=== PATIENT | male | born 1935 | race Caucasian/White ===

== ENCOUNTER 2017-06-24 13:14 | Outpatient (CLI) | payer MEDICARE ==
--- NOTE | 2017-06-24 14:04 | RAD ---
FOUR VIEWS OF THE LUMBOSACRAL SPINE: COMPARISON: None. HISTORY: Lumbar radiculopathy. FINDINGS: AP, lateral, and flexion and extension views of the lumbosacral spine were performed. The vertebral bodies demonstrate normal height and alignment without fracture or subluxation. Alignment is unchang ed with flexion and extension. Moderate osteophytes are seen throughout the lumbar spine. Moderate posterior facet arthrosis is seen in the lumbar spine. IMPRESSION: Moderate degenerative changes of the lumbar spine with unchanged alignment with bending. POS: JENNIFER
--- NOTE | 2017-06-24 15:07 | MRI ---
MRI OF THE LUMBAR SPINE: DATE: 06/24/17. COMPARISON: 06/11/16. HISTORY: Continued low back pain worsening and radiating down bilateral lower extremities. Lumbar radiculopat hy. TECHNIQUE: Multiplanar, multisequence MR imaging of the lumbar spine provided without contrast. FINDINGS: The sagittal STIR imaging demonstrates mild edematous end plate change on the right at L4-5 and L5-S1 . Mild degenerative-type edematous changes are noted involving the left pedicle of L4 vertebral body and right pedicle of L5 vertebral body. These findings are similar when compared to the prior exam. On the basis of 5 lumbar-type vertebral bodies, conus medullaris terminates at L1. No anterolisthesis or retrolisthesis noted within the lumbar spine. T12-L1: Mild bilateral facet hypertrophy. Intervertebral disk height and signal intensity within no rmal limits with no significant central canal or neural foraminal stenosis. L1-2: Mild bilateral facet hypertrophy. There is disk space narrowing, disk desiccation, and mild d isk bulge with small posterior osteophyte, stable. No central canal or neural foraminal stenosis. L2-3: Disk space narrowing, disk desiccation, and mild disk bulge, stable. Mild bilateral facet hyp ertrophy and hypertrophy of ligamentum flavum noted. Mild left neural foraminal stenosis. No signif icant central canal or right neural foraminal stenosis. L3-4: There is disk space narrowing, disk desiccation, and disk-osteophyte complex. There is promin ent bilateral facet hypertrophy and hypertrophy of the ligamentum flavum. There is severe central ca nal stenosis, similar when compared to the prior exam. There is moderate right and severe left neura l foraminal stenosis, grossly unchanged as well. L4-5: Disk space narrowing, disk desiccation, disk bulge, and central annular tear noted, stable. B ilateral facet hypertrophy and hypertrophy of ligamentum flavum noted. There is mild to moderate sta ble central canal stenosis. There is severe bilateral neural foraminal stenosis, right greater than left, not significantly changed. L5-S1: There is disk space narrowing, disk desiccation, and mild disk bugle. There is bilateral fac et hypertrophy. There is anterior and right lateral osteophyte formation, stable as well. There is no significant central canal stenosis. There is mild bilateral neural foraminal stenosis, right grea ter than left. Imaged retroperitoneal structures appear grossly unremarkable. IMPRESSION: Stable degenerative change within the lumbar spine, most significant at the L3-4 and L4-5 levels. POS: JENNIFER
== END 2017-06-24 13:15 | disposition home or self-care (01) ==
LOC: MRI 13:14
PROVIDERS: ATTEND Surgery
DX: M47.26 Other spondylosis with radiculopathy, lumbar region (principal)
CPT/HCPCS: 72120; 72148

== ENCOUNTER 2017-07-07 10:50 | Outpatient (CLI) | payer MEDICARE ==
[2017-07-07 11:40] LABS: Hemoglobin 14.1 g/dL (14.0-18.0); Mean Corpuscular HGB CONC 32.1 g/dL (32.0-36.0); Mean Corpuscular Hemoglobin 31.7 pg (27.0-31.0); Mean Corpuscular Volume 98.8 fl (80.0-94.0); Mean Platelet Volume 7.5 fL (7.4-10.4); Platelet Count 146 thou/uL (130-400); RBC Distribution Width 11.5 % (11.5-14.5); Red Blood Cell (RBC) Count 4.43 mill/uL (4.70-6.10); White Blood Cell (WBC) Count 5.8 thou/uL (4.8-10.8)
[2017-07-07 11:46] LABS: INR-International Normal Ratio 1.1; PTT 31.3 SEC (22.9-36.1); Prothrombin Time 14.2 SEC (12.0-14.7)
[2017-07-07 12:02] LABS: Anion Gap 9 mmol/L (10-20); BUN (Urea Nitrogen) 28 mg/dL (8.4-25.7); Calc. Creatinine Clearance 0 mL/min (70-130); Calcium 9.3 mg/dL (7.8-10.44); Carbon Dioxide 26 mmol/L (23-31); Chloride 106 mmol/L (98-107); Estimated GFR-MDRD 52; Glucose 87 mg/dL (83-110); Potassium 4.3 mmol/L (3.5-5.1); Sodium 137 mmol/L (136-145)
== END 2017-07-07 10:51 | disposition home or self-care (01) ==
LOC: LABBT 10:50
PROVIDERS: ATTEND Surgery
DX: Z01.818 Encounter for other preprocedural examination (principal); M48.061 Spinal stenosis, lumbar region without neurogenic claudication; M54.16 Radiculopathy, lumbar region
CPT/HCPCS: 80048; 85027; 85610; 85730; 93005; 93010

== ENCOUNTER 2017-07-16 08:55 | Day surgery (SDC) | payer MEDICARE ==
[2017-07-16] MEDS ORDERED: Clindamycin/D5W 900 mg/50 ml Premix Bag ONE (10:24)
[2017-07-16] MEDS ORDERED: Levofloxacin 500 mg/D5W 100 ml Premix Bag ONE (10:24)
[2017-07-16] MEDS ORDERED: Thrombin 5000 UNITS/5 ML VIAL ONE (12:07)
[2017-07-16] MEDS ORDERED: Sodium Chloride 0.9% 10 ML ONE (12:07)
[2017-07-16] MEDS ORDERED: Bacitracin Zinc Ointment 30 gm TUBE ONE (12:07)
[2017-07-16] MEDS ORDERED: HYDROmorphone 0.5 MG/0.5 ML SYRINGE ONE (13:05)
[2017-07-16] MEDS ORDERED: Meperidine HCl/PF 25 MG/ML VIAL SLOW IVP PRN (15:29)
[2017-07-16] MEDS ORDERED: Promethazine HCl 25 MG/ML VIAL IM PRN ×2 (15:29→16:05)
[2017-07-16] MEDS ORDERED: Promethazine HCl 25 MG/ML VIAL SLOW IVP PRN (15:29)
[2017-07-16] MEDS ORDERED: Ondansetron HCl/PF 4 MG/2 ML Vial IVP PRN ×2 (15:29→16:05)
--- NOTE | 2017-07-16 16:04 | OP ---
LOCATION: OR-12. WOUND TYPE: Type 1 wound. SURGEON: Armando Fraga M.D. HAND BASEBALL SEWER: Travis Chavez PA-C PREPROCEDURE DIAGNOSES: L3-L4, L4-L5 stenosis, low back and leg pain. POSTPROCEDURE DIAGNOSES: L3-L4, L4-L5 stenosis, low back and leg pain. PROCEDURE: L3-L4 and L4-L5 laminectomies, partial facetectomies and foraminotomies over the L3, L4, and L5 nerve roots. DESCRIPTION OF PROCEDURE: After informed consent was obtained from the patient, the patient was brou ght to OR 12. Proper patient pause and identification was carried out. He was placed under excellen t general endotracheal anesthesia and positioned prone on the operating room table. All appropriate points were padded. We identified the L3, L4, L5 dorsal spines lamina. Linear nohemi was made over th is region. This area was sterilely cleansed, prepared, and draped. Proper patient pause and identif ication was carried out. The wound was then opened with a combination of sharp, monopolar and blunt dissection. We then performed L3, L4, L5 laminectomies, partial facetectomies and foraminotomies. H e is very pleased with the decompression, there was no CSF leak. Copious irrigation occurred. Hemos tasis was the maximized throughout the case. The wound was closed in anatomic layers following the s prinkling of vancomycin powder. The patient then emerged from anesthesia.
[2017-07-16] MEDS ORDERED: Acetaminophen 325 MG TAB PO PRN (16:05)
[2017-07-16] MEDS ORDERED: traMADol HCl 50 MG TAB PO PRN (16:05)
[2017-07-16] MEDS ORDERED: tiZANidine HCl 4 MG TAB PO PRN (16:05)
[2017-07-16] MEDS ORDERED: Fleet Enema 133 ML BOT PR PRN (16:05)
[2017-07-16] MEDS ORDERED: Bisacodyl 10 MG SUPP PR PRN (16:05)
[2017-07-16] MEDS ORDERED: Milk Of Magnesia 30 ML UDCUP PO PRN (16:05)
[2017-07-16] MEDS ORDERED: Mag-Al 1200 mg/1200 mg/30 ML UDCUP PO PRN (16:05)
[2017-07-16] MEDS ORDERED: Acetaminophen/Codeine 30-300mg Tablet PO PRN (16:05)
[2017-07-16] MEDS ORDERED: Furosemide 40 MG TAB PO PRN (16:10)
[2017-07-16] MEDS ORDERED: Sodium Chloride 0.9% 1,000 ML IV SCH (16:15)
[2017-07-16] MEDS ORDERED: ePHEDrine/0.9% NaCl/PF SYRINGE 50 mg/10 ml ONE (17:14)
[2017-07-16] MEDS ORDERED: Glycopyrrolate 0.2 MG/ML 5 ML SYRINGE ONE (17:14)
[2017-07-16] MEDS ORDERED: Propofol 200 MG/20 ML VIAL ONE (17:14)
[2017-07-16] MEDS ORDERED: Ondansetron HCl/PF 4 MG/2 ML Vial ONE (17:14)
[2017-07-16] MEDS ORDERED: Lidocaine 1% PF 5 ML VIAL ONE (17:14)
[2017-07-16] MEDS ORDERED: PHENYLEPHRINE-NS 100 MCG/ML 10 ML SYRINGE ONE (17:14)
[2017-07-16] MEDS ORDERED: Atorvastatin Calcium 40 MG TAB PO SCH (21:00)
[2017-07-16] MEDS ORDERED: Dorzolamide HCl 2% Ophth Soln 10 ml Bottle R EYE SCH (21:00)
[2017-07-16] MEDS ORDERED: TROSPIUM 20 MG TABLET PO SCH (21:00)
[2017-07-16] MEDS: metFORMIN 500 MG TAB PO SCH (21:13)
[2017-07-16] MEDS: Gabapentin 300 MG CAP PO SCH (21:13)
[2017-07-16] MEDS: hydrALAZINE 25 MG TAB PO SCH (21:13)
[2017-07-16] MEDS: Clindamycin/D5W 900 MG in Premix Bag 1 BAG IVPB SCH (21:14)
[2017-07-16 21:29] VITALS: BMI 31.9
[2017-07-16] MEDS: HYDROcodone/Acetaminophen 7.5/325 mg Tablet PO PRN (21:31)
[2017-07-17] MEDS: HYDROcodone/Acetaminophen 7.5/325 mg Tablet PO PRN (04:18)
[2017-07-17] MEDS: Clindamycin/D5W 900 MG in Premix Bag 1 BAG IVPB SCH (05:52)
[2017-07-17] MEDS ORDERED: Levothyroxine Sodium 100 MCG TAB PO SCH (06:00)
[2017-07-17] MEDS: Gabapentin 300 MG CAP PO SCH (08:24)
[2017-07-17 08:25] VITALS: BP 167/72; TEMP 98.2
[2017-07-17] MEDS: metFORMIN 500 MG TAB PO SCH (08:25)
[2017-07-17] MEDS: hydrALAZINE 25 MG TAB PO SCH (08:26)
[2017-07-17] MEDS ORDERED: Lisinopril 20 MG TAB PO SCH (09:00)
[2017-07-17] MEDS ORDERED: Mirtazapine 30 MG TAB PO SCH (09:00)
[2017-07-17] MEDS ORDERED: Multivitamin W/ Minerals 1 TAB PO SCH (09:00)
[2017-07-17] MEDS ORDERED: Non-Formulary Item 1 EACH (Atorvastatin Calcium [Atorvastatin Calcium] 80 MG) PO SCH (09:00)
[2017-07-17] MEDS ORDERED: Tamsulosin HCl 0.4 MG CAP PO SCH (09:00)
--- NOTE | 2017-07-17 12:18 | PRG ---
DATE OF SERVICE: 07/17/2017 SUBJECTIVE: Mr. Sky is doing well postoperative day #1 from lumbar laminectomy. He has had just a scant amount of right lower extremity pain, but he states overall his pain is significantly improve d compared to before surgery. On exam, he has excellent strength in his lower extremities. He has a negative Homans sign. I do no t suspect that this is a DVT. It is likely just leftover radiculitis. He is doing very well; jessika delvalle, we will plan for dismissal. We went over intraoperative and postoperative issues.
== END 2017-07-17 10:14 | disposition home or self-care (01) ==
LOC: SDC 08:55 → ONC 16:05 → SDC 07-17 10:14
PROVIDERS: ATTEND Surgery
PROC: 00NY0ZZ Release Lumbar Spinal Cord, Open Approach (ICD-10-PCS; principal; 2017-07-16)
DX: M48.061 Spinal stenosis, lumbar region without neurogenic claudication (principal); Z88.0 Allergy status to penicillin
CPT/HCPCS: 76001; A4216; J1170; J1956; J2001; J2405; J2704; J3370; J3490

== ENCOUNTER 2018-10-19 07:23 | Outpatient (CLI) | payer MEDICARE ==
[2018-10-19] MEDS ORDERED: Gadobenate Dimeglumine 529 MG/1 ML (20ML VIAL) ONE (09:09)
--- NOTE | 2018-10-19 09:17 | MRI ---
MRI Lumbar Spine Noncontrast: HISTORY: Pain COMPARISON: 06/24/2017 FINDINGS: Conus medullaris is normal in morphology and terminates at the L1 level. Multilevel bilateral mild to moderate degenerative facet hypertrophy is present L1-2:Small left paracentral disc protrusion is present without high-grade central canal or neural for aminal stenosis L2-3:Broad-based disc osteophyte. Central zone annular fissure. Hffn-[id number] central canal stenos is with crowding of the bilateral traversing L2 nerve roots within each subarticular zone. Mild bilateral neural foraminal narrowing L3-4:Broad-based disc osteophyte with focal right paracentral component producing moderate right suba rticular stenosis with impingement of the traversing right L4 nerve root. There is mild central canal stenosis. Moderate to severe left and mild right neural foraminal stenosis present L4-5: Right paracentral disc protrusion is superimposed upon disc osteophyte complex with mild narro wing of the central canal. There is a synovial cyst adjacent the medial aspect of the right facet, 1.3 x 0.5 cm, with resultant medial displacement of adjacent nerve roots of the cauda equina. Moderat e narrowing of right subarticular zone with impingement of the traversing right L5 nerve root. Mild to moderate central canal stenosis is present and there is moderate to severe right and mild left gilbert ral foraminal narrowing L5-S1:Right asymmetric disc osteophyte formation results in mild to moderate right foraminal stenosis . No high-grade left neural foraminal, or central canal compromise IMPRESSION: Multilevel degenerative change at the lumbar spine, as outlined above. Transcribed Date/Time: 10/19/2018 9:42 AM
--- NOTE | 2018-10-19 09:25 | RAD ---
XR Lumbar Spine Min 4 View: 10/19/2018 12:00 AM CLINICAL INDICATION: Postlaminectomy syndrome, back pain COMPARISON: 06/24/2017 FINDINGS: Fracture:No new compression fracture Arthropathy:Multilevel moderate degenerative change of the lumbar spine is present. There is prominen t dextrocurvature of the upper lumbar spine, apex at L2. Alignment: Neutral lateral view reveals a slight degree of retrolisthesis at L1-2, and L3-4. No signi ficant abnormal translational motion identified with flexion/extension positioning. Incidental findings:Atherosclerosis and surgical clips are seen IMPRESSION: 1. Multilevel degenerative change of the lumbar spine, with mild retrolisthesis at L1-2, and L3-4. No significant abnormal translational motion.
== END 2018-10-19 07:24 | disposition home or self-care (01) ==
LOC: BICMRI 07:23
PROVIDERS: ATTEND Anesthesiology Pain Medicine
DX: M47.26 Other spondylosis with radiculopathy, lumbar region (principal); M96.1 Postlaminectomy syndrome, not elsewhere classified; M43.16 Spondylolisthesis, lumbar region
CPT/HCPCS: 72110; 72158; A9577

== ENCOUNTER 2019-03-02 12:28 | Outpatient (CLI) | payer MEDICARE ==
--- NOTE | 2019-03-02 13:14 | RAD ---
XR CERVICAL SPINE 4 VIEWS MINIMUM: DATE; 03/02/2019. TIME: 12:00 AM. CLINICAL INDICATION: Numbness in feet. COMPARISON: None. FINDINGS: Fracture:No fracture. Arthropathy:Moderate to severe multilevel degenerative change at the cervical spine. There is accentu ation of cervical lordosis. Flexion/extension positioning reveals no significant abnormal translational motion. Incidental findings:None of significance. IMPRESSION: Moderate to severe multilevel degenerative change at the cervical spine, without abnormal translation al motion. Transcribed Date/Time: 03/02/2019 2:02 PM
--- NOTE | 2019-03-02 13:14 | RAD ---
XR Lumbar Spine Min 4 View: 03/02/2019 12:00 AM CLINICAL INDICATION: Low back pain and radiculopathy COMPARISON: 10/19/2018 FINDINGS: Fracture:No fracture. No significant subluxation. Arthropathy:Moderate multilevel change spine is redemonstrated, with multilevel endplate degeneration , marginal osteophytosis, disc space narrowing and facet osteoarthritis. There is accentuation of lumbar lordosis. Flexion/extension positioning reveals no significant translational motion. Incidental findings:Atherosclerosis. IMPRESSION: Moderate multilevel degenerative change throughout the lumbar spine.
--- NOTE | 2019-03-02 14:46 | MRI ---
MRI CERVICAL SPINE WITHOUT CONTRAST: HISTORY: Bilateral foot numbness. COMPARISON: None. FINDINGS: Heterogeneous T1 marrow signal intensity of the cervical vertebrae. Cervical spine vertebral body hei ght is maintained. There is no fracture. No significant STIR hyperintensity to suggest vertebral body edema or ligamentous injury. Spondylolisthesis: 2.1 mm of retrolisthesis of C2 to upon C3. 4.2 mm of retrolisthesis of C3 upon C4. 2.3 mm of anterolisthesis of C7 upon T1. There is intrinsic T2 hyperintensity and STIR hyperintensity at the C5-C6 disc space. Fluid is suspec arabella. Endplates are preserved. Visualized brain parenchyma, cervicomedullary junction, cervical cord and the upper thoracic cord hav e a normal size and signal intensity. C2-C3: Broad-based disk-osteophyte by complex, nearly effacing the ventral subarachnoid space. Mild c entral canal stenosis. Bilaterally, neural foramina pain. C3-C4: Broad-based discussed by complex deforms the thecal sac and obscures the subarachnoid space. T here is mass effect and deformity the cervical cord with moderate to severe central canal stenosis. No cord hyperintensity. Moderate bilateral neural foraminal narrowing C4-C5: Broad-based disk-osteophyte complex effaces the subarachnoid space. There is mass effect and deformity the cervical cord. Moderate to severe central canal stenosis. Moderate bilateral neural foraminal narrowing. C5-C6: Abnormal fluid signal intensity in the disc. There is a central/left paracentral disc protrusi on. Mass effect and deformity of the midline and left aspect of the cord. There is moderate central canal stenosis, along the left aspect of the central spinal canal. Mild right and moderate left neura l foraminal narrowing. C6-C7: Broad-based osteophyte ridge effaces the subarachnoid space and causes deformity the cervical cord. Moderate central canal stenosis. Moderate to severe bilateral neural foraminal narrowing. C7-T1: No evidence of significant central canal stenosis or significant neural foraminal narrowing. T 2 hyperintensity in the left and right neural foramina due to bilateral perineural sleeve cysts. IMPRESSION: Extensive degenerative changes of the cervical spine as detailed above. 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 Transcribed Date/Time: 03/02/2019 3:12 PM
--- NOTE | 2019-03-02 15:02 | MRI ---
Exam: Thoracic spine MRI without contrast HISTORY: Bilateral foot numbness. Comparison: None FINDINGS: There is appropriate T1 marrow signal intensity of the thoracic vertebra with mild heteroge neity suggesting senescent change. There is no evidence of acute thoracic spine fracture. There is mild loss of vertebral body height at T1 without edema to suggest an acute process. No significant re tropulsion Visualized mediastinal structures are unremarkable. Small bilateral effusions cannot be excluded. Vis ualized lung parenchyma is unremarkable Visualized solid organs of appropriate signal intensity. The thoracic cord has a overall normal size and signal intensity. No cord expansion. No cord malacia. Conus medullaris terminates at the T12-L1 level. Throughout the thoracic spine, neural foramina are patent T2-T3: Severe central canal stenosis secondary to disc osteophyte complex. T3-T4: Desiccation with mild loss of disc space height. Broad-based disc bulge with mild central bita l stenosis T4-T5: Desiccation with mild loss of disc space height. Broad-based disc bulge effaces subarachnoid s pace. There is mild central canal stenosis T6-T7: Small right paracentral disc protrusion. Mild canal stenosis. T8-T9: Small central/left paracentral disc protrusion. No significant central canal stenosis. Neural foramina are patent T10-T11: Broad-based disc osteophyte complex. There is moderate to severe central canal stenosis. IMPRESSION: 1. Degenerative changes of the thoracic spine as above. 2. There is severe central canal stenosis at T2-T3 and moderate to severe central canal stenosis at T 10-T11.
== END 2019-03-02 12:29 | disposition home or self-care (01) ==
LOC: BICMRI 12:28
PROVIDERS: ATTEND Physician Assistant Surgical
DX: M47.26 Other spondylosis with radiculopathy, lumbar region (principal); M48.062 Spinal stenosis, lumbar region with neurogenic claudication; R20.8 Other disturbances of skin sensation; R20.2 Paresthesia of skin; M47.812 Spondylosis without myelopathy or radiculopathy, cervical region; M47.814 Spondylosis without myelopathy or radiculopathy, thoracic region; M48.04 Spinal stenosis, thoracic region; M43.12 Spondylolisthesis, cervical region
CPT/HCPCS: 72050; 72110; 72141; 72146

== ENCOUNTER 2019-10-10 06:18 | Outpatient (CLI) | payer MEDICARE, OTHER ==
[2019-10-10 10:46] LABS: Hemoglobin 11.9 g/dL (14.0-18.0); Mean Platelet Volume 8.1 fL (7.4-10.4); Platelet Count 142 thou/uL (130-400); RBC Distribution Width 11.7 % (11.5-14.5); Red Blood Cell (RBC) Count 3.62 mill/uL (4.70-6.10); White Blood Cell (WBC) Count 8.1 thou/uL (4.8-10.8)
[2019-10-10 10:51] LABS: PTT 31.1 SEC (22.9-36.1); Prothrombin Time 12.7 sec (12.0-14.7)
[2019-10-10 11:09] LABS: Anion Gap 14 mmol/L (10-20); BUN (Urea Nitrogen) 41 mg/dL (8.4-25.7); Calc. Creatinine Clearance 0 mL/min (70-130); Calcium 9.2 mg/dL (7.8-10.44); Carbon Dioxide 21 mmol/L (23-31); Chloride 107 mmol/L (98-107); Estimated GFR-MDRD 27; Glucose 101 mg/dL (83-110); Potassium 4.6 mmol/L (3.5-5.1); Sodium 137 mmol/L (136-145)
[2019-10-10 17:36] LABS: SARS-CoV-2 MS2 Positive; SARS-CoV-2 N Gene Negative; SARS-CoV-2 S Gene Negative; SARS-CoV-2 orf1ab Negative
--- NOTE | 2019-10-10 21:11 | EKG ---
Test Reason : Blood Pressure : / mmHG Vent. Rate : 055 BPM Atrial Rate : 340 BPM P-R Int : 000 ms QRS Dur : 094 ms QT Int : 510 ms P-R-T Axes : 000 027 001 degrees QTc Int : 487 ms Junctional rhythm Nonspecific T wave abnormality Prolonged QT Abnormal ECG When compared with ECG of 07-JUL-2017 11:26, Junctional rhythm has replaced Sinus rhythm Criteria for Septal infarct are no longer Present Nonspecific T wave abnormality now evident in Lateral leads Confirmed by Angeline LITTLEJOHN ([id number]) on 10/10/2019 9:11:04 PM Referred By: ERNESTINE Confirmed By:Angeline LITTLEJOHN
== END 2019-10-10 06:19 | disposition home or self-care (01) ==
LOC: LABBT 06:18
PROVIDERS: ATTEND Surgery
DX: Z01.818 Encounter for other preprocedural examination (principal); Z11.59 Encounter for screening for other viral diseases; M48.061 Spinal stenosis, lumbar region without neurogenic claudication; M54.16 Radiculopathy, lumbar region
CPT/HCPCS: 80048; 85027; 85610; 85730; 93005; U0003; 87635; 93010

== ENCOUNTER 2019-10-13 07:30 | Day surgery (SDC) | payer MEDICARE ==
[2019-10-10 08:45] VITALS: BMI 30.4
[2019-10-13] MEDS ORDERED: Clindamycin/D5W 900 mg/50 ml Premix Bag ONE (10:06)
[2019-10-13] MEDS ORDERED: Levofloxacin 500 mg/D5W 100 ml Premix Bag ONE (10:06)
[2019-10-13] MEDS ORDERED: Thrombin 5000 UNITS/5 ML VIAL ONE (10:36)
[2019-10-13] MEDS ORDERED: Fentanyl 100 MCG/2 ML VIAL ONE ×2 (10:38→14:29)
[2019-10-13] MEDS ORDERED: Lidocaine 2% Jelly 5 ML TUBE ONE (10:38)
[2019-10-13] MEDS ORDERED: Phenylephrine 10 MG/ML VIAL ONE (11:46)
[2019-10-13] MEDS ORDERED: Albumin 5% 500 ML ONE (11:55)
[2019-10-13] MEDS ORDERED: Dexamethasone 20 MG/5 ML VIAL ONE (13:33)
[2019-10-13] MEDS ORDERED: PHENYLEPHRINE-NS 100 MCG/ML 10 ML SYRINGE ONE (13:33)
[2019-10-13] MEDS ORDERED: Rocuronium Bromide 10 MG/ML (10ML VIAL) ONE (13:33)
[2019-10-13] MEDS ORDERED: Ondansetron PF 4 MG/2 ML Vial ONE (13:33)
[2019-10-13] MEDS ORDERED: EPHEDRINE 25 MG/5 ML SYRINGE ONE (13:33)
[2019-10-13] MEDS ORDERED: Glycopyrrolate 0.2 MG/ML 5 ML SYRINGE ONE (13:33)
[2019-10-13] MEDS ORDERED: Lidocaine 1% PF 5 ML VIAL ONE (13:33)
[2019-10-13] MEDS ORDERED: PROPOFOL 200 MG/20 ML VIAL ONE (13:33)
[2019-10-13] MEDS ORDERED: Bisacodyl 10 MG SUPP PR PRN (13:52)
[2019-10-13] MEDS ORDERED: Acetaminophen/Codeine 30-300mg Tablet PO PRN (13:52)
[2019-10-13] MEDS ORDERED: traMADol HCl 50 MG TAB PO PRN (13:52)
[2019-10-13] MEDS ORDERED: Mag-Al 1200 mg/1200 mg/30 ML UDCUP PO PRN (13:52)
[2019-10-13] MEDS ORDERED: Morphine 2 MG/ML SYRINGE SLOW IVP PRN (13:52)
[2019-10-13] MEDS ORDERED: Ondansetron PF 4 MG/2 ML Vial IVP PRN (13:52)
[2019-10-13] MEDS ORDERED: Acetaminophen 325 MG TAB PO PRN (13:52)
[2019-10-13] MEDS ORDERED: tiZANidine HCl 4 MG TAB PO PRN (13:52)
[2019-10-13] MEDS ORDERED: Milk Of Magnesia 30 ML UDCUP PO PRN (13:52)
[2019-10-13] MEDS ORDERED: Fleet Enema 133 ML BOT PR PRN (13:52)
[2019-10-13] MEDS ORDERED: Promethazine HCl 25 MG/ML VIAL SLOW IVP PRN (14:00)
[2019-10-13] MEDS ORDERED: Promethazine HCl 25 MG/ML VIAL IM PRN (14:00)
[2019-10-13] MEDS ORDERED: Ondansetron HCl/PF 4 MG/2 ML Vial IVP PRN (14:00)
[2019-10-13] MEDS: Gabapentin 300 MG CAP PO SCH ×2 (16:36→20:10)
[2019-10-13] MEDS: hydrALAZINE 25 MG TAB PO SCH ×2 (17:21→20:11)
[2019-10-13] MEDS: Clindamycin/D5W 900 MG in Premix Bag 1 BAG IVPB SCH (18:18)
[2019-10-13] MEDS: Sodium Chloride 0.9% 1,000 ML IV SCH ×2 (20:07→21:17)
[2019-10-13] MEDS: Tamsulosin HCl 0.4 MG CAP PO SCH (20:10)
[2019-10-13] MEDS: Dorzolamide HCl 2% Ophth Soln 10 ml Bottle R EYE SCH (20:11)
[2019-10-13] MEDS ORDERED: Mirtazapine 30 MG TAB PO SCH (21:00)
[2019-10-13] MEDS ORDERED: Finasteride 5 MG TAB PO SCH (21:00)
[2019-10-13] MEDS ORDERED: Oxybutynin ER 5 MG TAB PO SCH (21:00)
[2019-10-13] MEDS: HYDROcodone/Acetaminophen 7.5/325 mg Tablet PO PRN (21:15)
[2019-10-14] MEDS: Clindamycin/D5W 900 MG in Premix Bag 1 BAG IVPB SCH (01:09)
[2019-10-14] MEDS ORDERED: Levothyroxine Sodium 100 MCG TAB PO SCH (06:00)
[2019-10-14] MEDS: HYDROcodone/Acetaminophen 7.5/325 mg Tablet PO PRN (06:06)
--- NOTE | 2019-10-14 06:58 | OP ---
DATE OF PROCEDURE: 10/13/2019 LOCATION: OR 12. CHIEF GAUGER: Clary Mcclellan PA-C. PREPROCEDURE DIAGNOSES: 1. Right L3-L4 revision hemilaminotomy, foraminotomy, and diskectomy for decompression of the traversing right L4 nerve root. 2. Right L4-L5 synovial cyst resection for decompression of the traversing right L5 nerve root. 3. Use of operative microscope for microdissection. DESCRIPTION OF PROCEDURE: After informed consent was obtained from the patient, the patient was brought to the OR. Proper patient, pause, and identification were carried out. He was placed under excellent general endotracheal anesthesia and positioned prone on the OR table. All appropriate points were padded. We identified the L3, L4, and L5 segments. This area was sterilely cleansed, prepared, and draped. Proper patient, pause, and identification was carried out. The old wound was used and we then proceeded to open the wound and expose the right L3-L4 and right L4-L5 segments, which were scarred as expected from the prior surgery. Localization film confirmed our area of interest. We then performed a right L3-L4 revision hemilaminotomy, foraminotomy, and diskectomy, with use of operative microscope for microdissection, and a right L4-L5 synovial cyst resection for decompression of traversing right L5 nerve root. We had excellent decompression of common dural tube and nerve roots. Copious irrigation occurred throughout. The wound was then closed in anatomic layers following sprinkling of vancomycin powder. The patient then emerged from anesthesia. Job ID: [id number]
[2019-10-14] MEDS: Dorzolamide HCl 2% Ophth Soln 10 ml Bottle R EYE SCH (08:30)
[2019-10-14] MEDS: Gabapentin 300 MG CAP PO SCH (08:31)
[2019-10-14] MEDS: Tamsulosin HCl 0.4 MG CAP PO SCH (08:32)
[2019-10-14] MEDS: hydrALAZINE 25 MG TAB PO SCH (08:33)
[2019-10-14] MEDS ORDERED: Calcitriol 0.25 MCG CAP PO SCH (09:00)
[2019-10-14] MEDS ORDERED: Atorvastatin Calcium 40 MG TAB PO SCH (09:00)
[2019-10-14 10:44] VITALS: BP 148/56; TEMP 98.1
--- NOTE | 2019-10-14 11:42 | PRG ---
DATE OF SERVICE: 10/14/2019 Mr. Sky is doing well postoperative day 1 from lumbar decompression. He is neurologically intact and mobilizing. We will plan for dismissal once he walks in the franks. Job ID: [id number]
== END 2019-10-14 12:24 | disposition home or self-care (01) ==
LOC: SDC 07:30 → SURG A 13:57 → SDC 10-14 12:24
PROVIDERS: ATTEND Surgery
PROC: 0QB00ZX Excision of Lumbar Vertebra, Open Approach, Diagnostic (ICD-10-PCS; principal; 2019-10-13)
PROC: 0SB20ZZ Excision of Lumbar Vertebral Disc, Open Approach (ICD-10-PCS; 2019-10-13)
PROC: 01NB0ZZ Release Lumbar Nerve, Open Approach (ICD-10-PCS; 2019-10-13)
DX: M51.16 Intervertebral disc disorders with radiculopathy, lumbar region (principal); M71.38 Other bursal cyst, other site; M48.061 Spinal stenosis, lumbar region without neurogenic claudication; Z79.82 Long term (current) use of aspirin; Z79.899 Other long term (current) drug therapy; Z88.0 Allergy status to penicillin; Z95.1 Presence of aortocoronary bypass graft
CPT/HCPCS: 63042; 63267; 76000; P9045; J1956; J2370; J3010; J3370; J3490

== ENCOUNTER 2021-07-16 13:25 | Outpatient (CLI) | payer MEDICARE ==
[2021-07-16 14:35] LABS: Hemoglobin 12.7 g/dL (13.5-17.5); Mean Corpuscular HGB CONC 31.9 g/dL (32.0-36.0); Mean Corpuscular Hemoglobin 32.6 pg (27.0-33.0); Mean Corpuscular Volume 102.1 fl (81.2-95.1); Mean Platelet Volume 9.6 fl (7.4-10.4); Platelet Count 125 10x3/uL (150-450); RBC Distribution Width 12.9 % (11.5-14.5); White Blood Cell (WBC) Count 5.9 10x3/uL (3.5-10.5)
[2021-07-16 14:48] LABS: PTT 28.9 sec (22.0-33.0); Prothrombin Time 10.9 sec (9.5-12.1)
[2021-07-16 15:00] LABS: Anion Gap 15 mmol/L (10-20); BUN (Urea Nitrogen) 62 mg/dL (8.4-25.7); Calc. Creatinine Clearance 0 mL/min (70-130); Calcium 9.2 mg/dL (7.8-10.44); Carbon Dioxide 19 mmol/L (23-31); Chloride 108 mmol/L (98-107); Glucose 98 mg/dL (83-110); Potassium 4.1 mmol/L (3.5-5.1); Sodium 138 mmol/L (136-145)
[2021-07-16 15:21] LABS: Bilirubin Neg (Negative); Blood, Urine Negative (Negative); Clarity Clear (Clear); Glucose, Urine (Dipstick) Normal (Negative); Ketone, Urine Negative (Negative); Leukocyte 25 (Negative); Nitrite Negative (Negative); Protein, Urine (Dipstick) 30 mg/dl (Neg-Trace); Urobilinogen Normal mg/dL (Less than 2)
[2021-07-16 15:37] LABS: Bacteria/HPF None Seen HPF (None Seen); RBC/HPF 0-3 HPF (0-3); Squamous Epithelial 0-3 HPF (0-3); WBC/HPF 0-3 HPF (0-3)
[2021-07-16 23:46] LABS: SARS-CoV-2 PCR by NAA Not Detected (NotDetected)
== END 2021-07-16 13:26 | disposition home or self-care (01) ==
LOC: LABBT 13:25
PROVIDERS: ATTEND Urology
DX: Z01.818 Encounter for other preprocedural examination (principal); C67.9 Malignant neoplasm of bladder, unspecified; N40.1 Benign prostatic hyperplasia with lower urinary tract symptoms; N39.41 Urge incontinence; E11.42 Type 2 diabetes mellitus with diabetic polyneuropathy; N18.30 Chronic kidney disease, stage 3 unspecified; E11.22 Type 2 diabetes mellitus with diabetic chronic kidney disease; Z20.822 Contact with and (suspected) exposure to COVID-19
CPT/HCPCS: 80048; 81001; 85027; 85610; 85730; 87086; 93005; U0003; U0005; 93010

== ENCOUNTER 2021-07-19 08:32 | Day surgery (SDC) | payer MEDICARE ==
[2021-07-16 12:24] VITALS: BMI 28.8
[2021-07-19] MEDS ORDERED: PROPOFOL 20 ML ONE (11:26)
[2021-07-19] MEDS ORDERED: Fentanyl 250 MCG/5 ML VIAL ONE (11:26)
[2021-07-19] MEDS ORDERED: Levofloxacin 500 mg/D5W 100 ml Premix Bag ONE (11:29)
[2021-07-19] MEDS ORDERED: ePHEDrine 50 MG/ML VIAL ONE (11:33)
[2021-07-19] MEDS ORDERED: Ondansetron PF 4 MG/2 ML Vial ONE (11:33)
== END 2021-07-19 13:11 | disposition home or self-care (01) ==
LOC: SDC 08:32
PROVIDERS: ATTEND Urology
PROC: 0T7D8DZ Dilation of Urethra with Intraluminal Device, Via Natural or Artificial Opening Endoscopic (ICD-10-PCS; principal; 2021-07-19)
DX: N40.1 Benign prostatic hyperplasia with lower urinary tract symptoms (principal); N13.8 Other obstructive and reflux uropathy; N32.89 Other specified disorders of bladder; E03.9 Hypothyroidism, unspecified; I12.9 Hypertensive chronic kidney disease with stage 1 through stage 4 chronic kidney disease, or unspecified chronic kidney disease; E11.22 Type 2 diabetes mellitus with diabetic chronic kidney disease; N18.9 Chronic kidney disease, unspecified; E78.5 Hyperlipidemia, unspecified; K21.9 Gastro-esophageal reflux disease without esophagitis; I25.10 Atherosclerotic heart disease of native coronary artery without angina pectoris; Z85.51 Personal history of malignant neoplasm of bladder; Z79.82 Long term (current) use of aspirin; Z79.899 Other long term (current) drug therapy; Z88.0 Allergy status to penicillin; Z95.1 Presence of aortocoronary bypass graft
CPT/HCPCS: C9739; L8699; J1956; J2405; J2704; J3010; J3490

== ENCOUNTER 2021-10-06 15:11 | Inpatient (IN) | payer MEDICARE ==
[2021-10-06] MEDS: Sodium Chloride 0.9% 1,000 ML IV SCH ×2 (20:51→22:12)
[2021-10-06] MEDS ORDERED: Ondansetron PF 4 MG/2 ML Vial IVP PRN (21:15)
[2021-10-06] MEDS ORDERED: Sodium Chloride 0.9% 1,000 ML IV SCH (21:17)
[2021-10-06 22:00] LABS: Hemoglobin 9.9 g/dL (14.0-18.0)
[2021-10-06] MEDS: Sodium Bicarbonate Tab 325 MG TAB PO SCH (22:10)
[2021-10-06 22:21] LABS: SARS-CoV-2 PCR by NAA Not Detected (NotDetected)
[2021-10-06] MEDS ORDERED: Mirtazapine 30 MG TAB PO SCH (23:59)
[2021-10-07] MEDS: Sodium Chloride 0.9% 1,000 ML IV SCH ×2 (06:31→15:49)
[2021-10-07] MEDS: Acetaminophen 325 MG TAB PO PRN ×3 (06:35→20:55)
[2021-10-07 06:36] LABS: #Eosinphils 0.2 thou/uL (0.0-0.7); #Lymphocytes 1.2 thou/uL (1.20-3.40); #Monocytes 0.5 thou/uL (0.11-0.59); #Neutrophils 4.4 thou/uL (1.40-6.50); %Basophils 0.3 % (0.0-1.0); %Eosinophils 3.3 % (0.0-10.0); %Lymphocytes 19.2 % (21.0-51.0); %Monocytes 8.3 % (0.0-10.0); %Neutrophils 68.9 % (42.0-75.0); Hemoglobin 9.3 g/dL (14.0-18.0); Mean Corpuscular Hemoglobin 35.9 pg (27.0-31.0); Mean Platelet Volume 7.2 fL (7.4-10.4); Platelet Count 125 thou/uL (130-400); RBC Distribution Width 11.2 % (11.5-14.5); Red Blood Cell (RBC) Count 2.57 mill/uL (4.70-6.10); White Blood Cell (WBC) Count 6.4 thou/uL (4.8-10.8)
[2021-10-07 06:49] LABS: Anion Gap 15 mmol/L (10-20); BUN (Urea Nitrogen) 79 mg/dL (8.4-25.7); Calc. Creatinine Clearance 14 mL/min (70-130); Calcium 8.7 mg/dL (7.8-10.44); Carbon Dioxide 17 mmol/L (23-31); Chloride 111 mmol/L (98-107); Glucose 84 mg/dL (83-110); Iron 142 ug/dL (65-175); Iron Binding Capacity, Total 210 mcg/dL (261-462); Potassium 3.1 mmol/L (3.5-5.1); Sodium 140 mmol/L (136-145)
[2021-10-07] MEDS: Sodium Bicarbonate Tab 325 MG TAB PO SCH ×2 (08:32→20:55)
[2021-10-07] MEDS ORDERED: Heparin 5,000 UNITS/ML VIAL SC SCH (09:00)
[2021-10-07 11:41] LABS: Anion Gap 14 mmol/L (10-20); BUN (Urea Nitrogen) 76 mg/dL (8.4-25.7); Calc. Creatinine Clearance 14 mL/min (70-130); Calcium 8.6 mg/dL (7.8-10.44); Carbon Dioxide 19 mmol/L (23-31); Chloride 110 mmol/L (98-107); Glucose 117 mg/dL (83-110); Potassium 3.6 mmol/L (3.5-5.1); Sodium 139 mmol/L (136-145)
[2021-10-07] MEDS: Calcitriol 0.25 MCG CAP PO SCH (20:55)
[2021-10-07] MEDS: hydrALAZINE 25 MG TAB PO SCH (20:56)
[2021-10-07] MEDS: Mirtazapine 15 MG Soltab PO SCH (20:57)
[2021-10-08] MEDS: Sodium Chloride 0.9% 1,000 ML IV SCH ×3 (01:58→19:54)
[2021-10-08 06:13] LABS: #Eosinphils 0.2 thou/uL (0.0-0.7); #Lymphocytes 1.9 thou/uL (1.20-3.40); #Monocytes 0.5 thou/uL (0.11-0.59); #Neutrophils 3.6 thou/uL (1.40-6.50); %Basophils 0.3 % (0.0-1.0); %Eosinophils 3.5 % (0.0-10.0); %Lymphocytes 30.5 % (21.0-51.0); %Monocytes 8.1 % (0.0-10.0); %Neutrophils 57.6 % (42.0-75.0); Hemoglobin 9.3 g/dL (14.0-18.0); Mean Corpuscular HGB CONC 34.1 g/dL (32.0-36.0); Mean Platelet Volume 7.1 fL (7.4-10.4); Platelet Count 128 thou/uL (130-400); RBC Distribution Width 11.9 % (11.5-14.5); Red Blood Cell (RBC) Count 2.58 mill/uL (4.70-6.10); White Blood Cell (WBC) Count 6.2 thou/uL (4.8-10.8)
[2021-10-08 06:40] LABS: Anion Gap 16 mmol/L (10-20); BUN (Urea Nitrogen) 69 mg/dL (8.4-25.7); Calc. Creatinine Clearance 15 mL/min (70-130); Calcium 8.6 mg/dL (7.8-10.44); Carbon Dioxide 15 mmol/L (23-31); Chloride 114 mmol/L (98-107); Glucose 87 mg/dL (83-110); Potassium 3.4 mmol/L (3.5-5.1); Sodium 142 mmol/L (136-145)
[2021-10-08] MEDS: Gabapentin 300 MG CAP PO SCH (08:08)
[2021-10-08] MEDS: Folic Acid 1 MG TAB PO SCH (08:09)
[2021-10-08] MEDS: hydrALAZINE 25 MG TAB PO SCH ×3 (08:09→19:55)
[2021-10-08] MEDS: Aspirin 81 mg Enteric Coated Tablet PO SCH (08:09)
[2021-10-08] MEDS: Sodium Bicarbonate Tab 325 MG TAB PO SCH ×2 (08:10→19:54)
[2021-10-08] MEDS: Levothyroxine Sodium 100 MCG TAB PO SCH (08:10)
[2021-10-08] MEDS: Atorvastatin Calcium 40 MG TAB PO SCH (08:10)
[2021-10-08] MEDS: Calcitriol 0.25 MCG CAP PO SCH ×2 (08:10→19:54)
[2021-10-08] MEDS: Acetaminophen 325 MG TAB PO PRN (19:54)
[2021-10-08] MEDS: Mirtazapine 15 MG Soltab PO SCH (19:55)
[2021-10-09 05:10] LABS: #Eosinphils 0.2 thou/uL (0.0-0.7); #Lymphocytes 1.2 thou/uL (1.20-3.40); #Monocytes 0.4 thou/uL (0.11-0.59); #Neutrophils 3.5 thou/uL (1.40-6.50); %Basophils 0.7 % (0.0-1.0); %Eosinophils 4.4 % (0.0-10.0); %Lymphocytes 21.5 % (21.0-51.0); %Monocytes 8.1 % (0.0-10.0); %Neutrophils 65.4 % (42.0-75.0); Hemoglobin 8.2 g/dL (14.0-18.0); Mean Corpuscular Hemoglobin 34.6 pg (27.0-31.0); Mean Platelet Volume 7.2 fL (7.4-10.4); Platelet Count 123 thou/uL (130-400); RBC Distribution Width 11.3 % (11.5-14.5); Red Blood Cell (RBC) Count 2.37 mill/uL (4.70-6.10); White Blood Cell (WBC) Count 5.4 thou/uL (4.8-10.8)
[2021-10-09 05:21] LABS: Anion Gap 13 mmol/L (10-20); BUN (Urea Nitrogen) 60 mg/dL (8.4-25.7); Calc. Creatinine Clearance 17 mL/min (70-130); Calcium 8.2 mg/dL (7.8-10.44); Carbon Dioxide 17 mmol/L (23-31); Chloride 118 mmol/L (98-107); Glucose 86 mg/dL (83-110); Potassium 3.2 mmol/L (3.5-5.1); Sodium 145 mmol/L (136-145)
[2021-10-09] MEDS: Sodium Chloride 0.9% 1,000 ML IV SCH ×2 (05:21→14:39)
[2021-10-09] MEDS: Acetaminophen 325 MG TAB PO PRN (06:43)
[2021-10-09] MEDS: Atorvastatin Calcium 40 MG TAB PO SCH (08:20)
[2021-10-09] MEDS: Levothyroxine Sodium 100 MCG TAB PO SCH (08:22)
[2021-10-09] MEDS: hydrALAZINE 25 MG TAB PO SCH ×3 (08:22→20:56)
[2021-10-09] MEDS: Sodium Bicarbonate Tab 325 MG TAB PO SCH ×2 (08:22→20:57)
[2021-10-09] MEDS: Folic Acid 1 MG TAB PO SCH (08:22)
[2021-10-09] MEDS: Gabapentin 300 MG CAP PO SCH (08:23)
[2021-10-09] MEDS: Aspirin 81 mg Enteric Coated Tablet PO SCH (08:23)
[2021-10-09] MEDS: Calcitriol 0.25 MCG CAP PO SCH ×2 (08:24→20:57)
[2021-10-09] MEDS: HYDROcodone/Acetaminophen 10/325 mg Tablet PO PRN (16:42)
[2021-10-09] MEDS: Mirtazapine 15 MG Soltab PO SCH (20:57)
[2021-10-10] MEDS: Sodium Chloride 0.9% 1,000 ML IV SCH (01:32)
[2021-10-10 05:00] LABS: #Eosinphils 0.3 thou/uL (0.0-0.7); #Lymphocytes 1.1 thou/uL (1.20-3.40); #Monocytes 0.5 thou/uL (0.11-0.59); #Neutrophils 4.1 thou/uL (1.40-6.50); %Basophils 0.6 % (0.0-1.0); %Eosinophils 4.4 % (0.0-10.0); %Lymphocytes 18.7 % (21.0-51.0); %Monocytes 8.2 % (0.0-10.0); Hemoglobin 9.1 g/dL (14.0-18.0); Mean Corpuscular HGB CONC 33.8 g/dL (32.0-36.0); Mean Corpuscular Hemoglobin 35.5 pg (27.0-31.0); Mean Platelet Volume 6.9 fL (7.4-10.4); Platelet Count 115 thou/uL (130-400); RBC Distribution Width 11.4 % (11.5-14.5); Red Blood Cell (RBC) Count 2.55 mill/uL (4.70-6.10)
[2021-10-10 05:26] LABS: Anion Gap 13 mmol/L (10-20); BUN (Urea Nitrogen) 50 mg/dL (8.4-25.7); Calc. Creatinine Clearance 19 mL/min (70-130); Calcium 8.1 mg/dL (7.8-10.44); Carbon Dioxide 16 mmol/L (23-31); Chloride 117 mmol/L (98-107); Glucose 89 mg/dL (83-110); Potassium 3.1 mmol/L (3.5-5.1); Sodium 143 mmol/L (136-145)
[2021-10-10 06:42] VITALS: BMI 27.7
[2021-10-10] MEDS: Aspirin 81 mg Enteric Coated Tablet PO SCH (08:28)
[2021-10-10] MEDS: Gabapentin 300 MG CAP PO SCH (08:28)
[2021-10-10] MEDS: Calcitriol 0.25 MCG CAP PO SCH (08:28)
[2021-10-10] MEDS: Atorvastatin Calcium 40 MG TAB PO SCH (08:28)
[2021-10-10] MEDS: Sodium Bicarbonate Tab 325 MG TAB PO SCH (08:30)
[2021-10-10] MEDS: hydrALAZINE 25 MG TAB PO SCH (08:30)
[2021-10-10] MEDS: Levothyroxine Sodium 100 MCG TAB PO SCH (08:31)
[2021-10-10] MEDS: HYDROcodone/Acetaminophen 10/325 mg Tablet PO PRN (08:39)
[2021-10-10] MEDS: Folic Acid 1 MG TAB PO SCH (08:39)
[2021-10-10 11:48] VITALS: BP 147/67; TEMP 97.1
== END 2021-10-10 13:52 | disposition home or self-care (01) | DRG 683 ==
LOC: NEURO 17:24
PROVIDERS: ADMIT Family Medicine; ATTEND Emergency Medicine
DX: N17.9 Acute kidney failure, unspecified (principal); Z20.822 Contact with and (suspected) exposure to COVID-19; I50.32 Chronic diastolic (congestive) heart failure; E87.2 Acidosis; I13.2 Hypertensive heart and chronic kidney disease with heart failure and with stage 5 chronic kidney disease, or end stage renal disease; N18.5 Chronic kidney disease, stage 5; E78.5 Hyperlipidemia, unspecified; I25.10 Atherosclerotic heart disease of native coronary artery without angina pectoris; E03.9 Hypothyroidism, unspecified; D63.1 Anemia in chronic kidney disease; G89.29 Other chronic pain; M54.9 Dorsalgia, unspecified; Z60.2 Problems related to living alone; D69.6 Thrombocytopenia, unspecified; E87.6 Hypokalemia; E53.8 Deficiency of other specified B group vitamins; Z85.51 Personal history of malignant neoplasm of bladder; Z88.0 Allergy status to penicillin; Z79.899 Other long term (current) drug therapy; Z79.82 Long term (current) use of aspirin; Z79.890 Hormone replacement therapy; Z95.1 Presence of aortocoronary bypass graft; Z95.0 Presence of cardiac pacemaker; Z90.49 Acquired absence of other specified parts of digestive tract; Z98.890 Other specified postprocedural states; Z80.9 Family history of malignant neoplasm, unspecified; Z87.891 Personal history of nicotine dependence
CPT/HCPCS: 36415; 76770; 80048; 82607; 82746; 83540; 83550; 85025; J7050; U0003; U0005

== ENCOUNTER 2021-10-26 14:21 | Inpatient (IN) | payer MEDICARE ==
[2021-10-26 15:10] LABS: #Eosinphils 0.3 thou/uL (0.0-0.7); #Lymphocytes 1.4 thou/uL (1.20-3.40); #Monocytes 0.6 thou/uL (0.11-0.59); #Neutrophils 6.6 thou/uL (1.40-6.50); %Basophils 0.4 % (0.0-1.0); %Eosinophils 2.8 % (0.0-10.0); %Monocytes 7.2 % (0.0-10.0); %Neutrophils 73.5 % (42.0-75.0); Hemoglobin 8.8 g/dL (14.0-18.0); Mean Corpuscular HGB CONC 34.4 g/dL (32.0-36.0); Mean Corpuscular Hemoglobin 35.7 pg (27.0-31.0); Mean Platelet Volume 6.2 fL (7.4-10.4); Platelet Count 178 thou/uL (130-400); RBC Distribution Width 12.4 % (11.5-14.5); Red Blood Cell (RBC) Count 2.46 mill/uL (4.70-6.10)
[2021-10-26 15:14] LABS: Bilirubin Negative (Negative); Blood, Urine Negative (Negative); Clarity Clear (Clear); Glucose, Urine (Dipstick) 50 mg/dL (Negative); Ketone, Urine Negative (Negative); Leukocyte Negative Leu/uL (Negative); Nitrite Negative (Negative); Protein, Urine (Dipstick) 20 mg/dL (Neg-Trace); Specific Gravity, Urine 1.011 (1.002-1.036); Urobilinogen Normal mg/dL (Less than 2)
[2021-10-26 15:31] LABS: ALT (SGPT) 9 U/L (8-55); AST (SGOT) 12 U/L (5-34); Albumin 3.4 g/dL (3.4-4.8); Alkaline Phosphatase 66 U/L (40-110); Anion Gap 17 mmol/L (10-20); BUN (Urea Nitrogen) 62 mg/dL (8.4-25.7); Bilirubin, Total 0.4 mg/dL (0.2-1.2); Calc. Creatinine Clearance 0 mL/min (70-130); Calcium 8.6 mg/dL (7.8-10.44); Carbon Dioxide 18 mmol/L (23-31); Chloride 102 mmol/L (98-107); Globulin 2.7 g/dL (2.4-3.5); Glucose 129 mg/dL (83-110); Magnesium 1.8 mg/dL (1.6-2.6); Potassium 3.6 mmol/L (3.5-5.1); Protein, Total 6.1 g/dL (5.8-8.1); Sodium 133 mmol/L (136-145)
[2021-10-26] MEDS ORDERED: Ondansetron ODT 4 MG TAB PO PRN (17:35)
[2021-10-26] MEDS ORDERED: Ondansetron PF 4 MG/2 ML Vial IVP PRN (17:35)
[2021-10-26 18:46] LABS: Troponin I 0.023 ng/mL (< 0.028)
[2021-10-26] MEDS: Sodium Chloride 0.9% 1,000 ML IV SCH (21:42)
[2021-10-26] MEDS: Atorvastatin Calcium 40 MG TAB PO SCH (21:43)
[2021-10-26] MEDS: Calcitriol 0.25 MCG CAP PO SCH (21:43)
[2021-10-26] MEDS: hydrALAZINE 25 MG TAB PO SCH (21:43)
[2021-10-26] MEDS: Acetaminophen 325 MG TAB PO PRN (21:43)
[2021-10-27 03:25] LABS: SARS-CoV-2 NAA Rapid Test Not Detected (NotDetected)
[2021-10-27] MEDS: Levothyroxine Sodium 100 MCG TAB PO SCH (05:15)
[2021-10-27 06:50] LABS: Anion Gap 15 mmol/L (10-20); BUN (Urea Nitrogen) 61 mg/dL (8.4-25.7); Calc. Creatinine Clearance 10 mL/min (70-130); Calcium 8.8 mg/dL (7.8-10.44); Carbon Dioxide 18 mmol/L (23-31); Chloride 108 mmol/L (98-107); Glucose 90 mg/dL (83-110); Potassium 3.6 mmol/L (3.5-5.1); Sodium 137 mmol/L (136-145)
[2021-10-27 07:49] LABS: #Eosinphils 0.2 thou/uL (0.0-0.7); #Monocytes 0.6 thou/uL (0.11-0.59); #Neutrophils 4.5 thou/uL (1.40-6.50); %Basophils 0.2 % (0.0-1.0); %Eosinophils 3.3 % (0.0-10.0); %Lymphocytes 16.3 % (21.0-51.0); %Monocytes 8.7 % (0.0-10.0); %Neutrophils 71.4 % (42.0-75.0); Hemoglobin 8.6 g/dL (14.0-18.0); MDiff Complete? YES; Macrocytosis SLIGHT = 6-15 cells (100X) (0-5/hpf); Mean Corpuscular HGB CONC 32.8 g/dL (32.0-36.0); Mean Corpuscular Hemoglobin 35.5 pg (27.0-31.0); Mean Platelet Volume 6.8 fL (7.4-10.4); Platelet Count 148 thou/uL (130-400); Platelet Morphology Comment Appears Adequate; RBC Distribution Width 12.3 % (11.5-14.5); Red Blood Cell (RBC) Count 2.42 mill/uL (4.70-6.10); White Blood Cell (WBC) Count 6.3 thou/uL (4.8-10.8)
[2021-10-27] MEDS: hydrALAZINE 25 MG TAB PO SCH ×3 (09:06→21:56)
[2021-10-27] MEDS: Folic Acid 1 MG TAB PO SCH (09:06)
[2021-10-27] MEDS: Aspirin 81 mg Enteric Coated Tablet PO SCH (09:06)
[2021-10-27] MEDS: Calcitriol 0.25 MCG CAP PO SCH ×2 (09:06→21:56)
[2021-10-27] MEDS: Acetaminophen 325 MG TAB PO PRN ×2 (09:09→15:15)
[2021-10-27] MEDS: Sodium Chloride 0.9% 1,000 ML IV SCH (13:55)
[2021-10-27] MEDS: Atorvastatin Calcium 40 MG TAB PO SCH (21:56)
[2021-10-28] MEDS: Levothyroxine Sodium 100 MCG TAB PO SCH (06:17)
[2021-10-28 07:21] LABS: Hemoglobin 8.5 g/dL (14.0-18.0); Mean Corpuscular HGB CONC 32.5 g/dL (32.0-36.0); Mean Corpuscular Hemoglobin 35.5 pg (27.0-31.0); Mean Platelet Volume 7.2 fL (7.4-10.4); Platelet Count 137 thou/uL (130-400); RBC Distribution Width 12.4 % (11.5-14.5); Red Blood Cell (RBC) Count 2.41 mill/uL (4.70-6.10); White Blood Cell (WBC) Count 7.1 thou/uL (4.8-10.8)
[2021-10-28 07:41] LABS: Anion Gap 16 mmol/L (10-20); BUN (Urea Nitrogen) 56 mg/dL (8.4-25.7); Calc. Creatinine Clearance 11 mL/min (70-130); Calcium 8.7 mg/dL (7.8-10.44); Carbon Dioxide 15 mmol/L (23-31); Chloride 111 mmol/L (98-107); Glucose 89 mg/dL (83-110); Potassium 3.9 mmol/L (3.5-5.1); Sodium 138 mmol/L (136-145)
[2021-10-28 08:19] LABS: Band 2 % (5-11); Eosinophils 5 % (0-10); Lymphocytes 18 % (21-51); MDiff Complete? YES; Macrocytosis SLIGHT = 6-15 cells (100X) (0-5/hpf); Monocytes 13 % (0-10); Neutrophil 61 % (42-75); Platelet Morphology Comment Appears Adequate; Polychromasia SLIGHT = 2-3 cells (100X) (0-2/hpf); Reactive Lymphocytes 1 % (0-10)
[2021-10-28] MEDS: Folic Acid 1 MG TAB PO SCH (08:40)
[2021-10-28] MEDS: Calcitriol 0.25 MCG CAP PO SCH ×2 (08:40→22:07)
[2021-10-28] MEDS: Aspirin 81 mg Enteric Coated Tablet PO SCH (08:40)
[2021-10-28] MEDS: Sodium Chloride 0.9% 1,000 ML IV SCH (08:41)
[2021-10-28] MEDS: hydrALAZINE 25 MG TAB PO SCH ×3 (11:18→22:29)
[2021-10-28] MEDS: Acetaminophen 325 MG TAB PO PRN ×2 (11:19→22:17)
[2021-10-28] MEDS ORDERED: Epoetin (ESRD) 10,000 UNITS/ML VIAL SC SCH ×2 (13:00→22:00)
[2021-10-28] MEDS: Atorvastatin Calcium 40 MG TAB PO SCH (22:07)
[2021-10-29] MEDS: Levothyroxine Sodium 100 MCG TAB PO SCH (06:50)
[2021-10-29 06:57] LABS: #Eosinphils 0.2 thou/uL (0.0-0.7); #Lymphocytes 1.4 thou/uL (1.20-3.40); #Monocytes 0.6 thou/uL (0.11-0.59); #Neutrophils 3.6 thou/uL (1.40-6.50); %Basophils 0.4 % (0.0-1.0); %Eosinophils 3.8 % (0.0-10.0); %Monocytes 9.7 % (0.0-10.0); %Neutrophils 62.1 % (42.0-75.0); Hemoglobin 8.3 g/dL (14.0-18.0); Mean Corpuscular HGB CONC 33.6 g/dL (32.0-36.0); Mean Corpuscular Hemoglobin 35.9 pg (27.0-31.0); Mean Platelet Volume 6.6 fL (7.4-10.4); Platelet Count 155 thou/uL (130-400); RBC Distribution Width 12.3 % (11.5-14.5); Red Blood Cell (RBC) Count 2.32 mill/uL (4.70-6.10); White Blood Cell (WBC) Count 5.8 thou/uL (4.8-10.8)
[2021-10-29 07:32] LABS: Anion Gap 16 mmol/L (10-20); BUN (Urea Nitrogen) 52 mg/dL (8.4-25.7); Calc. Creatinine Clearance 11 mL/min (70-130); Calcium 8.5 mg/dL (7.8-10.44); Carbon Dioxide 16 mmol/L (23-31); Chloride 111 mmol/L (98-107); Glucose 86 mg/dL (83-110); Potassium 3.5 mmol/L (3.5-5.1); Sodium 139 mmol/L (136-145)
[2021-10-29] MEDS: Calcitriol 0.25 MCG CAP PO SCH ×2 (09:18→21:52)
[2021-10-29] MEDS: Folic Acid 1 MG TAB PO SCH (09:18)
[2021-10-29] MEDS: Aspirin 81 mg Enteric Coated Tablet PO SCH (09:18)
[2021-10-29] MEDS: hydrALAZINE 25 MG TAB PO SCH ×3 (09:20→21:52)
[2021-10-29] MEDS: Acetaminophen 500 MG TAB PO PRN ×2 (12:08→21:53)
[2021-10-29] MEDS ORDERED: Tuberculin PPD 0.1 ML VIAL I-DERMAL SCH (16:30)
[2021-10-29] MEDS ORDERED: CEFAZOLIN 2 GM in Sodium Chloride 0.9% 100 ML IVPB SCH (17:45)
[2021-10-29] MEDS: Atorvastatin Calcium 40 MG TAB PO SCH (21:53)
[2021-10-30] MEDS: Levothyroxine Sodium 100 MCG TAB PO SCH (06:08)
[2021-10-30 07:27] LABS: HBSAB Concentration Less than 8.00 mIU/mL; HBSAg Index 0.24 S/CO (0-0.99); Hep B Core Total Ab Non-Reactive (NonReactive); Hep B Core Total Index 0.04 S/CO (0-0.79); Hep B Surf AB Non-Reactive (NonReactive); Hep B Surf Ag Non-Reactive S/CO (NonReactive); Hep C IgG Ab Non-Reactive (NonReactive); Hep C Index 0.07 S/CO (0-0.79)
[2021-10-30] MEDS: Aspirin 81 mg Enteric Coated Tablet PO SCH (08:31)
[2021-10-30] MEDS: Calcitriol 0.25 MCG CAP PO SCH ×2 (08:31→22:54)
[2021-10-30] MEDS: Folic Acid 1 MG TAB PO SCH (08:31)
[2021-10-30] MEDS: hydrALAZINE 25 MG TAB PO SCH ×3 (08:32→22:54)
[2021-10-30] MEDS: Acetaminophen 500 MG TAB PO PRN ×2 (08:36→20:15)
[2021-10-30] MEDS ORDERED: Heparin 10,000 UNITS/ 10 ML VIAL ONE ×2 (08:54→16:08)
[2021-10-30] MEDS: EPOETIN ALFA-EPBX (ESRD) 10,000 UNIT/ML VIAL IVP SCH (14:42)
[2021-10-30] MEDS ORDERED: Midazolam HCl 2 mg/2 ml Vial ONE (14:47)
[2021-10-30] MEDS ORDERED: fentaNYL Citrate/PF 100 MCG/2 ML SYRINGE ONE (15:55)
[2021-10-30] MEDS ORDERED: Bupivacaine PF 0.5% 30 ML VIAL ONE (16:08)
[2021-10-30] MEDS ORDERED: Lidocaine 1% w/Epinephrine 1:100K 20 ML VIAL ONE (16:08)
[2021-10-30] MEDS ORDERED: Heparin 5,000 UNITS/ML VIAL ONE (16:08)
[2021-10-30] MEDS ORDERED: Protamine Sulfate 50 MG/5 ML VIAL ONE (16:08)
[2021-10-30] MEDS ORDERED: Sodium Chloride 0.9% 100 ML ONE (16:27)
[2021-10-30] MEDS ORDERED: CEFAZOLIN 2 GM VIAL ONE (16:27)
[2021-10-30] MEDS ORDERED: Lidocaine 1% PF 5 ML VIAL ONE (16:33)
[2021-10-30] MEDS ORDERED: Ropivacaine 0.5% HCl/PF (150 MG/30 ML VIAL) ONE (16:33)
[2021-10-30] MEDS ORDERED: PROPOFOL 200 MG/20 ML VIAL ONE (16:33)
[2021-10-30] MEDS ORDERED: traMADol HCl 50 MG TAB PO PRN (18:04)
[2021-10-30] MEDS: Atorvastatin Calcium 40 MG TAB PO SCH (22:54)
[2021-10-31] MEDS: Acetaminophen 500 MG TAB PO PRN (01:48)
[2021-10-31 02:21] VITALS: BMI 25.8
[2021-10-31] MEDS: Levothyroxine Sodium 100 MCG TAB PO SCH (05:55)
[2021-10-31] MEDS ORDERED: READ PPD TEST SITE PO SCH (09:00)
[2021-10-31] MEDS: hydrALAZINE 25 MG TAB PO SCH ×3 (09:44→20:14)
[2021-10-31] MEDS ORDERED: HYDROmorphone 0.5 MG/0.5 ML SYRINGE SLOW IVP SCH (09:45)
[2021-10-31] MEDS: Aspirin 81 mg Enteric Coated Tablet PO SCH (09:49)
[2021-10-31] MEDS: Folic Acid 1 MG TAB PO SCH (09:49)
[2021-10-31] MEDS: Calcitriol 0.25 MCG CAP PO SCH ×2 (09:49→20:14)
[2021-10-31] MEDS: Atorvastatin Calcium 40 MG TAB PO SCH (20:14)
[2021-11-01] MEDS: Levothyroxine Sodium 100 MCG TAB PO SCH (06:36)
[2021-11-01 07:34] LABS: #Eosinphils 0.2 thou/uL (0.0-0.7); #Monocytes 0.7 thou/uL (0.11-0.59); #Neutrophils 4.4 thou/uL (1.40-6.50); %Basophils 0.6 % (0.0-1.0); %Eosinophils 3.4 % (0.0-10.0); %Lymphocytes 15.4 % (21.0-51.0); %Monocytes 11.1 % (0.0-10.0); %Neutrophils 69.4 % (42.0-75.0); Hemoglobin 7.7 g/dL (14.0-18.0); Mean Corpuscular HGB CONC 33.5 g/dL (32.0-36.0); Mean Corpuscular Hemoglobin 36.2 pg (27.0-31.0); Platelet Count 141 thou/uL (130-400); RBC Distribution Width 12.1 % (11.5-14.5); Red Blood Cell (RBC) Count 2.12 mill/uL (4.70-6.10); White Blood Cell (WBC) Count 6.3 thou/uL (4.8-10.8)
[2021-11-01 07:56] LABS: Anion Gap 14 mmol/L (10-20); BUN (Urea Nitrogen) 47 mg/dL (8.4-25.7); Calc. Creatinine Clearance 13 mL/min (70-130); Calcium 8.6 mg/dL (7.8-10.44); Carbon Dioxide 21 mmol/L (23-31); Chloride 104 mmol/L (98-107); Glucose 95 mg/dL (83-110); Potassium 3.2 mmol/L (3.5-5.1); Sodium 136 mmol/L (136-145)
[2021-11-01] MEDS ORDERED: Potassium Chloride 20 MEQ TAB PO SCH (08:30)
[2021-11-01] MEDS: Calcitriol 0.25 MCG CAP PO SCH (09:06)
[2021-11-01] MEDS: hydrALAZINE 25 MG TAB PO SCH ×2 (09:07→14:52)
[2021-11-01] MEDS ORDERED: Heparin 10,000 UNITS/ 10 ML VIAL ONE (09:27)
[2021-11-01] MEDS: Aspirin 81 mg Enteric Coated Tablet PO SCH (11:26)
[2021-11-01] MEDS: Folic Acid 1 MG TAB PO SCH (11:26)
[2021-11-01] MEDS: EPOETIN ALFA-EPBX (ESRD) 10,000 UNIT/ML VIAL IVP SCH (12:29)
[2021-11-01] MEDS: Acetaminophen 500 MG TAB PO PRN (13:25)
[2021-11-01 13:31] VITALS: BP 120/60; TEMP 98.2
== END 2021-11-01 16:13 | disposition home health service (06) | DRG 673 ==
LOC: ERS 14:21 → T4-A 16:57 → OBSVTOIN 10-27 16:48
PROVIDERS: ADMIT Internal Medicine; ATTEND Internal Medicine
PROC: 5A1D70Z Performance of Urinary Filtration, Intermittent, Less than 6 Hours Per Day (ICD-10-PCS; principal; 2021-10-30)
PROC: 3E0T3BZ Introduction of Anesthetic Agent into Peripheral Nerves and Plexi, Percutaneous Approach (ICD-10-PCS; 2021-10-30)
PROC: 031B0ZF Bypass Right Radial Artery to Lower Arm Vein, Open Approach (ICD-10-PCS; 2021-10-30)
PROC: B548ZZA Ultrasonography of Superior Vena Cava, Guidance (ICD-10-PCS; 2021-10-30)
PROC: 0JH60XZ Insertion of Tunneled Vascular Access Device into Chest Subcutaneous Tissue and Fascia, Open Approach (ICD-10-PCS; 2021-10-30)
PROC: 02HV33Z Insertion of Infusion Device into Superior Vena Cava, Percutaneous Approach (ICD-10-PCS; 2021-10-30)
PROC: B5181ZA Fluoroscopy of Superior Vena Cava using Low Osmolar Contrast, Guidance (ICD-10-PCS; 2021-10-30)
PROC: 02HV33Z Insertion of Infusion Device into Superior Vena Cava, Percutaneous Approach (ICD-10-PCS; 2021-10-30)
DX: N17.9 Acute kidney failure, unspecified (principal); I21.A1 Myocardial infarction type 2; I13.0 Hypertensive heart and chronic kidney disease with heart failure and stage 1 through stage 4 chronic kidney disease, or unspecified chronic kidney disease; I50.32 Chronic diastolic (congestive) heart failure; E87.2 Acidosis; E87.1 Hypo-osmolality and hyponatremia; N28.0 Ischemia and infarction of kidney; Z20.822 Contact with and (suspected) exposure to COVID-19; E86.0 Dehydration; E78.5 Hyperlipidemia, unspecified; E03.9 Hypothyroidism, unspecified; I25.10 Atherosclerotic heart disease of native coronary artery without angina pectoris; N40.0 Benign prostatic hyperplasia without lower urinary tract symptoms; R29.6 Repeated falls; F17.210 Nicotine dependence, cigarettes, uncomplicated; R73.9 Hyperglycemia, unspecified; D63.1 Anemia in chronic kidney disease; D69.6 Thrombocytopenia, unspecified; N27.1 Small kidney, bilateral; N18.6 End stage renal disease; E87.6 Hypokalemia; Z95.1 Presence of aortocoronary bypass graft; Z88.0 Allergy status to penicillin; Z79.899 Other long term (current) drug therapy; Z79.82 Long term (current) use of aspirin; Z79.890 Hormone replacement therapy; Z85.51 Personal history of malignant neoplasm of bladder; Z98.890 Other specified postprocedural states; Z95.0 Presence of cardiac pacemaker; Z90.49 Acquired absence of other specified parts of digestive tract; Z91.81 History of falling; Z99.2 Dependence on renal dialysis
CPT/HCPCS: 36415; 71045; 76770; 80048; 80053; 81003; 83735; 84484; 85025; 86580; 86704; 87340; 90935; 93005; 93306; 93970; 94760; 96360; C1751; C1752; C1776; G0257; J0690; J1170; J1644; J2250; J2704; J2720; J2795; J3490; J7050; Q4081; S0020; U0002

== ENCOUNTER 2021-12-13 11:28 | Inpatient (IN) | payer MEDICARE ==
[2021-12-13 12:24] LABS: #Basophils 0.1 thou/uL (0.0-0.2); #Eosinphils 0.1 thou/uL (0.0-0.7); #Lymphocytes 1.3 thou/uL (1.20-3.40); #Monocytes 0.5 thou/uL (0.11-0.59); #Neutrophils 5.2 thou/uL (1.40-6.50); %Basophils 0.9 % (0.0-1.0); %Lymphocytes 17.8 % (21.0-51.0); %Monocytes 6.7 % (0.0-10.0); %Neutrophils 73.6 % (42.0-75.0); Hemoglobin 11.8 g/dL (14.0-18.0); Mean Corpuscular HGB CONC 32.2 g/dL (32.0-36.0); Mean Corpuscular Hemoglobin 35.6 pg (27.0-31.0); Mean Platelet Volume 7.6 fL (7.4-10.4); Platelet Count 140 thou/uL (130-400); RBC Distribution Width 12.3 % (11.5-14.5); Red Blood Cell (RBC) Count 3.32 mill/uL (4.70-6.10); White Blood Cell (WBC) Count 7.1 thou/uL (4.8-10.8)
[2021-12-13 13:00] LABS: ALT (SGPT) 8 U/L (8-55); AST (SGOT) 17 U/L (5-34); Albumin 3.7 g/dL (3.4-4.8); Alkaline Phosphatase 56 U/L (40-110); Anion Gap 20 mmol/L (10-20); BUN (Urea Nitrogen) 39 mg/dL (8.4-25.7); CK (CPK) 94 U/L (30-200); Calc. Creatinine Clearance 0 mL/min (70-130); Calcium 10.1 mg/dL (7.8-10.44); Carbon Dioxide 20 mmol/L (23-31); Chloride 105 mmol/L (98-107); Estimated GFR 14; Globulin 2.5 g/dL (2.4-3.5); Glucose 91 mg/dL (83-110); Potassium 3.2 mmol/L (3.5-5.1); Protein, Total 6.2 g/dL (5.8-8.1); Sodium 142 mmol/L (136-145)
[2021-12-13 13:09] LABS: Bilirubin, Total 0.4 mg/dL (0.2-1.2)
[2021-12-13 13:11] LABS: CKMB 2.4 ng/mL (0-6.6)
[2021-12-13] MEDS ORDERED: Aspirin Chewable 81 MG TAB ONE (13:29)
[2021-12-13] MEDS ORDERED: Ondansetron PF 4 MG/2 ML Vial IVP PRN (14:57)
[2021-12-13] MEDS ORDERED: Acetaminophen 650 MG Suppository PR PRN (14:57)
[2021-12-13] MEDS ORDERED: Ondansetron ODT 4 MG TAB PO PRN (14:57)
[2021-12-13] MEDS ORDERED: Sodium Chloride 0.9% 1,000 ML IV SCH (15:00)
[2021-12-13 16:31] LABS: Troponin I 0.087 ng/mL (< 0.028)
[2021-12-13] MEDS ORDERED: Potassium Chloride 20 MEQ TAB PO SCH (18:15)
[2021-12-13 19:16] LABS: Troponin I 0.139 ng/mL (< 0.028)
[2021-12-13 22:11] VITALS: BMI 24.7
[2021-12-13] MEDS: Atorvastatin Calcium 40 MG TAB PO SCH (22:54)
[2021-12-13] MEDS: Acetaminophen 325 MG TAB PO PRN (22:58)
[2021-12-14] MEDS: Levothyroxine Sodium 100 MCG TAB PO SCH (05:46)
[2021-12-14 05:57] LABS: Anion Gap 20 mmol/L (10-20); BUN (Urea Nitrogen) 39 mg/dL (8.4-25.7); Calc. Creatinine Clearance 14 mL/min (70-130); Calcium 9.8 mg/dL (7.8-10.44); Carbon Dioxide 20 mmol/L (23-31); Chloride 106 mmol/L (98-107); Estimated GFR 13; Glucose 78 mg/dL (83-110); Phosphorus 4.9 mg/dL (2.3-4.7); Potassium 3.3 mmol/L (3.5-5.1); Sodium 143 mmol/L (136-145)
[2021-12-14 07:00] LABS: Band 1 % (5-11); Eosinophils 2 % (0-10); Hemoglobin 12.7 g/dL (14.0-18.0); Lymphocytes 14 % (21-51); MDiff Complete? YES; Macrocytosis MODERATE=16-30 cells (100X) (0-5/hpf); Mean Corpuscular HGB CONC 32.4 g/dL (32.0-36.0); Mean Corpuscular Hemoglobin 36.1 pg (27.0-31.0); Mean Platelet Volume 8.2 fL (7.4-10.4); Monocytes 7 % (0-10); Neutrophil 74 % (42-75); Ovalocytes SLIGHT = 2-5 cells (100X) (0-1/hpf); Platelet Count 93 thou/uL (130-400); Platelet Morphology Comment Appears Decreased; RBC Distribution Width 12.3 % (11.5-14.5); Red Blood Cell (RBC) Count 3.51 mill/uL (4.70-6.10); White Blood Cell (WBC) Count 5.9 thou/uL (4.8-10.8)
[2021-12-14] MEDS: Folic Acid 1 MG TAB PO SCH (09:00)
[2021-12-14 09:08] LABS: HBSAB Concentration Less than 8.00 mIU/mL; HBSAg Index 0.76 S/CO (0-0.99); Hep B Surf AB Non-Reactive (NonReactive); Hep B Surf Ag Non-Reactive S/CO (NonReactive)
[2021-12-14] MEDS ORDERED: Heparin 10,000 UNITS/ 10 ML VIAL ONE (09:26)
[2021-12-14] MEDS: Atorvastatin Calcium 40 MG TAB PO SCH (20:18)
[2021-12-15 05:19] LABS: #Eosinphils 0.2 thou/uL (0.0-0.7); #Lymphocytes 0.9 thou/uL (1.20-3.40); #Monocytes 0.6 thou/uL (0.11-0.59); #Neutrophils 5.4 thou/uL (1.40-6.50); %Basophils 0.4 % (0.0-1.0); %Eosinophils 2.2 % (0.0-10.0); %Neutrophils 76.5 % (42.0-75.0); Mean Corpuscular HGB CONC 31.7 g/dL (32.0-36.0); Mean Corpuscular Hemoglobin 35.6 pg (27.0-31.0); Mean Platelet Volume 7.7 fL (7.4-10.4); Platelet Count 135 thou/uL (130-400); RBC Distribution Width 12.1 % (11.5-14.5); Red Blood Cell (RBC) Count 3.66 mill/uL (4.70-6.10); White Blood Cell (WBC) Count 7.1 thou/uL (4.8-10.8)
[2021-12-15 05:42] LABS: Anion Gap 16 mmol/L (10-20); BUN (Urea Nitrogen) 22 mg/dL (8.4-25.7); Calc. Creatinine Clearance 21 mL/min (70-130); Calcium 9.4 mg/dL (7.8-10.44); Carbon Dioxide 25 mmol/L (23-31); Chloride 102 mmol/L (98-107); Estimated GFR 20; Glucose 80 mg/dL (83-110); Potassium 3.3 mmol/L (3.5-5.1); Sodium 140 mmol/L (136-145)
[2021-12-15] MEDS: Levothyroxine Sodium 100 MCG TAB PO SCH (06:03)
[2021-12-15] MEDS: Acetaminophen 325 MG TAB PO PRN (09:44)
[2021-12-15] MEDS: Folic Acid 1 MG TAB PO SCH (09:44)
[2021-12-15] MEDS ORDERED: Potassium Chloride 20 MEQ TAB PO SCH (11:45)
[2021-12-15] MEDS: HYDROcodone/Acetaminophen 5/325 mg Tablet PO PRN (18:22)
[2021-12-15] MEDS: Atorvastatin Calcium 40 MG TAB PO SCH (21:29)
[2021-12-16 05:28] LABS: #Eosinphils 0.2 thou/uL (0.0-0.7); #Lymphocytes 1.2 thou/uL (1.20-3.40); #Monocytes 0.6 thou/uL (0.11-0.59); #Neutrophils 4.8 thou/uL (1.40-6.50); %Basophils 0.7 % (0.0-1.0); %Eosinophils 2.7 % (0.0-10.0); %Lymphocytes 17.4 % (21.0-51.0); %Monocytes 8.8 % (0.0-10.0); %Neutrophils 70.4 % (42.0-75.0); Hemoglobin 13.9 g/dL (14.0-18.0); Mean Corpuscular HGB CONC 32.7 g/dL (32.0-36.0); Mean Corpuscular Hemoglobin 36.8 pg (27.0-31.0); Mean Platelet Volume 7.9 fL (7.4-10.4); Platelet Count 124 thou/uL (130-400); RBC Distribution Width 11.9 % (11.5-14.5); Red Blood Cell (RBC) Count 3.77 mill/uL (4.70-6.10); White Blood Cell (WBC) Count 6.8 thou/uL (4.8-10.8)
[2021-12-16 05:52] LABS: Anion Gap 16 mmol/L (10-20); BUN (Urea Nitrogen) 29 mg/dL (8.4-25.7); Calc. Creatinine Clearance 17 mL/min (70-130); Calcium 9.4 mg/dL (7.8-10.44); Carbon Dioxide 21 mmol/L (23-31); Chloride 105 mmol/L (98-107); Estimated GFR 16; Glucose 84 mg/dL (83-110); Potassium 3.5 mmol/L (3.5-5.1); Sodium 138 mmol/L (136-145)
[2021-12-16] MEDS: Levothyroxine Sodium 100 MCG TAB PO SCH (06:38)
[2021-12-16] MEDS: HYDROcodone/Acetaminophen 5/325 mg Tablet PO PRN (06:38)
[2021-12-16] MEDS: Folic Acid 1 MG TAB PO SCH (10:46)
[2021-12-16 11:16] LABS: Syphilis Antibody Nonreactive (Nonreactive); Syphilis Antibody Index 0.04 S/CO (<1.00 Non-Reactive)
[2021-12-16] MEDS: Atorvastatin Calcium 40 MG TAB PO SCH (21:35)
[2021-12-17 05:23] LABS: #Basophils 0.1 thou/uL (0.0-0.2); #Eosinphils 0.3 thou/uL (0.0-0.7); #Lymphocytes 1.2 thou/uL (1.20-3.40); #Monocytes 0.8 thou/uL (0.11-0.59); #Neutrophils 5.7 thou/uL (1.40-6.50); %Eosinophils 3.2 % (0.0-10.0); %Monocytes 9.4 % (0.0-10.0); %Neutrophils 71.4 % (42.0-75.0); Hemoglobin 13.4 g/dL (14.0-18.0); Mean Corpuscular HGB CONC 32.2 g/dL (32.0-36.0); Mean Platelet Volume 7.9 fL (7.4-10.4); Platelet Count 138 thou/uL (130-400); RBC Distribution Width 11.9 % (11.5-14.5); Red Blood Cell (RBC) Count 3.73 mill/uL (4.70-6.10)
[2021-12-17 05:44] LABS: Anion Gap 15 mmol/L (10-20); BUN (Urea Nitrogen) 34 mg/dL (8.4-25.7); Calc. Creatinine Clearance 15 mL/min (70-130); Calcium 9.3 mg/dL (7.8-10.44); Carbon Dioxide 22 mmol/L (23-31); Chloride 107 mmol/L (98-107); Estimated GFR 14; Glucose 84 mg/dL (83-110); Potassium 3.6 mmol/L (3.5-5.1); Sodium 140 mmol/L (136-145)
[2021-12-17] MEDS: Levothyroxine Sodium 100 MCG TAB PO SCH (08:30)
[2021-12-17] MEDS: Folic Acid 1 MG TAB PO SCH (08:30)
[2021-12-17] MEDS ORDERED: Heparin 10,000 UNITS/ 10 ML VIAL ONE (14:39)
[2021-12-17] MEDS: HYDROcodone/Acetaminophen 5/325 mg Tablet PO PRN (17:09)
[2021-12-17] MEDS: Atorvastatin Calcium 40 MG TAB PO SCH (20:19)
[2021-12-18] MEDS: HYDROcodone/Acetaminophen 5/325 mg Tablet PO PRN ×2 (00:55→18:24)
[2021-12-18 05:09] LABS: #Basophils 0.1 thou/uL (0.0-0.2); #Eosinphils 0.2 thou/uL (0.0-0.7); #Lymphocytes 1.3 thou/uL (1.20-3.40); #Monocytes 0.6 thou/uL (0.11-0.59); %Basophils 0.9 % (0.0-1.0); %Eosinophils 2.5 % (0.0-10.0); %Lymphocytes 18.6 % (21.0-51.0); %Monocytes 8.9 % (0.0-10.0); %Neutrophils 69.1 % (42.0-75.0); Hemoglobin 13.9 g/dL (14.0-18.0); Mean Corpuscular Hemoglobin 35.3 pg (27.0-31.0); Platelet Count 132 thou/uL (130-400); RBC Distribution Width 11.8 % (11.5-14.5); Red Blood Cell (RBC) Count 3.93 mill/uL (4.70-6.10); White Blood Cell (WBC) Count 7.2 thou/uL (4.8-10.8)
[2021-12-18 05:40] LABS: Anion Gap 17 mmol/L (10-20); BUN (Urea Nitrogen) 23 mg/dL (8.4-25.7); Calc. Creatinine Clearance 20 mL/min (70-130); Calcium 9.4 mg/dL (7.8-10.44); Carbon Dioxide 23 mmol/L (23-31); Chloride 101 mmol/L (98-107); Estimated GFR 20; Glucose 81 mg/dL (83-110); Potassium 3.2 mmol/L (3.5-5.1); Sodium 138 mmol/L (136-145)
[2021-12-18] MEDS: Levothyroxine Sodium 100 MCG TAB PO SCH (06:37)
[2021-12-18] MEDS: Acetaminophen 325 MG TAB PO PRN (08:34)
[2021-12-18] MEDS: Folic Acid 1 MG TAB PO SCH (08:34)
[2021-12-18] MEDS: Atorvastatin Calcium 40 MG TAB PO SCH (20:15)
[2021-12-19] MEDS: Levothyroxine Sodium 100 MCG TAB PO SCH (06:07)
[2021-12-19] MEDS: Folic Acid 1 MG TAB PO SCH (09:06)
[2021-12-19 14:11] LABS: Methylmalonic Acid 542 nmol/L (0-378)
[2021-12-19] MEDS: Atorvastatin Calcium 40 MG TAB PO SCH (21:17)
[2021-12-20] MEDS: Levothyroxine Sodium 100 MCG TAB PO SCH (05:57)
[2021-12-20] MEDS: Folic Acid 1 MG TAB PO SCH (08:51)
[2021-12-20] MEDS ORDERED: Potassium Chloride 20 MEQ TAB PO SCH (12:45)
[2021-12-20 13:30] LABS: Bacteria/HPF None Seen HPF (None Seen); Bilirubin Negative (Negative); Blood, Urine 2+ (Negative); Clarity Clear (Clear); Glucose, Urine (Dipstick) 300 mg/dL (Negative); Ketone, Urine 10 mg/dL (Negative); Leukocyte Negative Leu/uL (Negative); Nitrite Negative (Negative); Protein, Urine (Dipstick) 100 mg/dL (Neg-Trace); Specific Gravity, Urine 1.017 (1.002-1.036); Squamous Epithelial 0-3 HPF (0-3); Urobilinogen Normal mg/dL (Less than 2); WBC/HPF 0-3 HPF (0-3); pH, Urine 6.5 (5.0-9.0)
[2021-12-20 13:32] LABS: Urine Culture Reflex No No
[2021-12-20] MEDS: Atorvastatin Calcium 40 MG TAB PO SCH (20:40)
[2021-12-21] MEDS: Levothyroxine Sodium 100 MCG TAB PO SCH (04:52)
[2021-12-21 06:53] LABS: Chloride 105 mmol/L (98-107); Potassium 3.3 mmol/L (3.5-5.1); Sodium 139 mmol/L (136-145)
[2021-12-21 06:54] LABS: Calcium 9.7 mg/dL (7.8-10.44); Glucose 90 mg/dL (83-110)
[2021-12-21 06:56] LABS: Anion Gap 17 mmol/L (10-20); Carbon Dioxide 20 mmol/L (23-31)
[2021-12-21 06:58] LABS: BUN (Urea Nitrogen) 35 mg/dL (8.4-25.7); Calc. Creatinine Clearance 16 mL/min (70-130); Estimated GFR 15
[2021-12-21] MEDS: HYDROcodone/Acetaminophen 5/325 mg Tablet PO PRN (08:39)
[2021-12-21] MEDS: Folic Acid 1 MG TAB PO SCH (08:39)
[2021-12-21] MEDS ORDERED: Ketotifen Fumarate 0.025% Ophth Soln 5 ml Bottle R EYE SCH (11:15)
[2021-12-21] MEDS ORDERED: Ketotifen Fumarate 0.025% Ophth Soln 5 ml Bottle L EYE SCH (11:15)
[2021-12-21] MEDS: Atorvastatin Calcium 40 MG TAB PO SCH (20:25)
[2021-12-21] MEDS: Ketotifen Fumarate 0.025% Ophth Soln 5 ml Bottle L EYE SCH (20:26)
[2021-12-21] MEDS: Ketotifen Fumarate 0.025% Ophth Soln 5 ml Bottle R EYE SCH (20:27)
[2021-12-22] MEDS: Levothyroxine Sodium 100 MCG TAB PO SCH (05:34)
[2021-12-22 06:11] LABS: Anion Gap 19 mmol/L (10-20); BUN (Urea Nitrogen) 37 mg/dL (8.4-25.7); Calc. Creatinine Clearance 16 mL/min (70-130); Calcium 9.7 mg/dL (7.8-10.44); Carbon Dioxide 21 mmol/L (23-31); Chloride 103 mmol/L (98-107); Estimated GFR 15; Glucose 88 mg/dL (83-110); Sodium 140 mmol/L (136-145)
[2021-12-22] MEDS: Folic Acid 1 MG TAB PO SCH (09:04)
[2021-12-22] MEDS: Ketotifen Fumarate 0.025% Ophth Soln 5 ml Bottle R EYE SCH ×2 (09:05→22:22)
[2021-12-22] MEDS: Ketotifen Fumarate 0.025% Ophth Soln 5 ml Bottle L EYE SCH ×2 (09:05→22:22)
[2021-12-22] MEDS: HYDROcodone/Acetaminophen 5/325 mg Tablet PO PRN ×2 (09:13→15:32)
[2021-12-22] MEDS ORDERED: Heparin 10,000 UNITS/ 10 ML VIAL ONE (13:37)
[2021-12-22] MEDS: Acetaminophen 325 MG TAB PO PRN (22:21)
[2021-12-22] MEDS: Atorvastatin Calcium 40 MG TAB PO SCH (22:21)
[2021-12-23] MEDS: Levothyroxine Sodium 100 MCG TAB PO SCH (05:59)
[2021-12-23 09:20] LABS: Anion Gap 22 mmol/L (10-20); BUN (Urea Nitrogen) 22 mg/dL (8.4-25.7); Calc. Creatinine Clearance 20 mL/min (70-130); Calcium 9.9 mg/dL (7.8-10.44); Carbon Dioxide 17 mmol/L (23-31); Chloride 101 mmol/L (98-107); Estimated GFR 19; Glucose 129 mg/dL (83-110); Potassium 3.3 mmol/L (3.5-5.1); Sodium 137 mmol/L (136-145)
[2021-12-23] MEDS: Folic Acid 1 MG TAB PO SCH (10:46)
[2021-12-23] MEDS: Ketotifen Fumarate 0.025% Ophth Soln 5 ml Bottle L EYE SCH (10:47)
[2021-12-23] MEDS: Ketotifen Fumarate 0.025% Ophth Soln 5 ml Bottle R EYE SCH (10:47)
[2021-12-23 11:31] VITALS: BP 154/70; TEMP 96.8
== END 2021-12-23 13:35 | DRG 91 ==
LOC: ERS 11:28 → ERHOLD 15:01 → NEURO 21:32 → OBSVTOIN 12-14 14:06
PROVIDERS: ADMIT Family Medicine; ATTEND Family Medicine
DX: R26.81 Unsteadiness on feet (principal); N18.6 End stage renal disease; I21.A1 Myocardial infarction type 2; I50.32 Chronic diastolic (congestive) heart failure; I13.2 Hypertensive heart and chronic kidney disease with heart failure and with stage 5 chronic kidney disease, or end stage renal disease; M47.816 Spondylosis without myelopathy or radiculopathy, lumbar region; E03.9 Hypothyroidism, unspecified; N40.0 Benign prostatic hyperplasia without lower urinary tract symptoms; I25.10 Atherosclerotic heart disease of native coronary artery without angina pectoris; E86.0 Dehydration; R29.6 Repeated falls; E87.6 Hypokalemia; D63.1 Anemia in chronic kidney disease; I44.1 Atrioventricular block, second degree; R26.9 Unspecified abnormalities of gait and mobility; Z88.0 Allergy status to penicillin; Z79.82 Long term (current) use of aspirin; Z79.890 Hormone replacement therapy; Z79.899 Other long term (current) drug therapy; Z95.1 Presence of aortocoronary bypass graft; Z95.0 Presence of cardiac pacemaker; Z90.49 Acquired absence of other specified parts of digestive tract; Z99.2 Dependence on renal dialysis
CPT/HCPCS: 36415; 70450; 70551; 72131; 72148; 80048; 80053; 81001; 82550; 82553; 82607; 83735; 83921; 84100; 84132; 84443; 84484; 85025; 85652; 86140; 86706; 86780; 87340; 90935; 93005; G0257; G0378; J1644; U0003; U0005

== ENCOUNTER 2022-02-04 07:22 | Day surgery (SDC) | payer MEDICARE ==
[2022-01-29 09:50] VITALS: BMI 25.9
[2022-02-04 08:15] VITALS: BP 103/63; TEMP 99.2
[2022-02-04] MEDS ORDERED: Heparin 1,000 UNITS/ML VIAL ONE (10:44)
[2022-02-04] MEDS ORDERED: Iopamidol 300 61% 50 ML VIAL FS ONE (10:57)
== END 2022-02-04 10:40 | disposition home or self-care (01) ==
LOC: SPEC 07:22
PROVIDERS: ATTEND Specialist
PROC: B51W1ZZ Fluoroscopy of Dialysis Shunt/Fistula using Low Osmolar Contrast (ICD-10-PCS; principal; 2022-02-04)
DX: T82.590A Other mechanical complication of surgically created arteriovenous fistula, initial encounter (principal); I13.2 Hypertensive heart and chronic kidney disease with heart failure and with stage 5 chronic kidney disease, or end stage renal disease; E11.22 Type 2 diabetes mellitus with diabetic chronic kidney disease; N18.6 End stage renal disease; I50.20 Unspecified systolic (congestive) heart failure; D63.1 Anemia in chronic kidney disease; I25.10 Atherosclerotic heart disease of native coronary artery without angina pectoris; E03.9 Hypothyroidism, unspecified; N40.0 Benign prostatic hyperplasia without lower urinary tract symptoms; K21.9 Gastro-esophageal reflux disease without esophagitis; E78.5 Hyperlipidemia, unspecified; Z87.891 Personal history of nicotine dependence; Z79.82 Long term (current) use of aspirin; Z79.890 Hormone replacement therapy; Z79.899 Other long term (current) drug therapy; Z88.0 Allergy status to penicillin; Z95.0 Presence of cardiac pacemaker; Z95.1 Presence of aortocoronary bypass graft; Z99.2 Dependence on renal dialysis; Y81.3 Surgical instruments, materials and general- and plastic-surgery devices (including sutures) associated with adverse incidents
CPT/HCPCS: 36901; J1644; Q9967

== ENCOUNTER 2022-08-18 08:24 | Inpatient (IN) | payer MEDICARE ==
[~2022-08-18 08:24] MED LIST: Heparin 10,000 UNITS/ 10 ML VIAL ONE
[2022-08-18 09:06] LABS: #Lymphocytes 0.7 thou/uL (1.20-3.40); #Monocytes 0.7 thou/uL (0.11-0.59); #Neutrophils 6.6 thou/uL (1.40-6.50); %Basophils 0.5 % (0.0-1.0); %Eosinophils 0.1 % (0.0-10.0); %Lymphocytes 8.3 % (21.0-51.0); %Monocytes 8.6 % (0.0-10.0); %Neutrophils 82.4 % (42.0-75.0); Hemoglobin 13.3 g/dL (14.0-18.0); Mean Corpuscular HGB CONC 33.4 g/dL (32.0-36.0); Mean Corpuscular Hemoglobin 35.6 pg (27.0-31.0); Mean Platelet Volume 6.8 fL (7.4-10.4); Platelet Count 103 10x3/uL (130-400); RBC Distribution Width 12.3 % (11.5-14.5); Red Blood Cell (RBC) Count 3.73 mill/uL (4.70-6.10)
[2022-08-18 09:21] LABS: ALT (SGPT) 18 U/L (8-55); AST (SGOT) 22 U/L (5-34); Alkaline Phosphatase 71 U/L (40-110); Anion Gap 18 mmol/L (10-20); BUN (Urea Nitrogen) 63 mg/dL (8.4-25.7); Bilirubin, Total 0.6 mg/dL (0.2-1.2); CK (CPK) 131 U/L (30-200); Calc. Creatinine Clearance 0 mL/min (70-130); Calcium 9.4 mg/dL (7.8-10.44); Carbon Dioxide 21 mmol/L (23-31); Chloride 100 mmol/L (98-107); Estimated GFR 12; Globulin 2.9 g/dL (2.4-3.5); Glucose 106 mg/dL (83-110); Potassium 3.2 mmol/L (3.5-5.1); Protein, Total 6.9 g/dL (5.8-8.1); Sodium 136 mmol/L (136-145)
[2022-08-18 09:53] LABS: CKMB 5.8 ng/mL (0-6.6)
[2022-08-18 10:31] LABS: Bacteria/HPF 1+ HPF (None Seen); Bilirubin Negative (Negative); Blood, Urine 2+ (Negative); Clarity Clear (Clear); Glucose, Urine (Dipstick) 30 mg/dL (Negative); Ketone, Urine Negative (Negative); Leukocyte 500 Leu/uL (Negative); Nitrite Negative (Negative); Protein, Urine (Dipstick) 70 mg/dL (Neg-Trace); RBC/HPF 0-3 HPF (0-3); Specific Gravity, Urine 1.019 (1.002-1.036); Squamous Epithelial 0-3 HPF (0-3); Urobilinogen Normal mg/dL (Less than 2); WBC/HPF 21-50 HPF (0-3); pH, Urine 5.5 (5.0-9.0)
[2022-08-18] MEDS ORDERED: Aspirin Chewable 81 MG TAB ONE (10:45)
[2022-08-18] MEDS ORDERED: Heparin 10,000 UNITS/ 10 ML VIAL ONE (11:05)
[2022-08-18] MEDS ORDERED: Loperamide HCl 2 MG CAP PO PRN (12:03)
[2022-08-18] MEDS ORDERED: Ondansetron ODT 4 MG TAB PO PRN (12:03)
[2022-08-18 12:44] LABS: Troponin I 1.654 ng/mL (< 0.028)
[2022-08-18 15:53] VITALS: BMI 25.9
[2022-08-18 16:07] LABS: Troponin I 3.979 ng/mL (< 0.028)
[2022-08-18] MEDS: Gabapentin 300 MG CAP PO SCH ×2 (16:40→21:18)
[2022-08-18] MEDS ORDERED: Heparin 5,000 UNITS/ML VIAL SC SCH (21:00)
[2022-08-18] MEDS ORDERED: Famotidine 20 MG TAB PO SCH (21:00)
[2022-08-18] MEDS ORDERED: Sodium Chloride 0.65% Nasal 44 ML BOT EA NARE PRN (21:03)
[2022-08-18] MEDS: Mirtazapine 30 MG Soltab PO SCH (21:19)
[2022-08-18] MEDS: Carvedilol 6.25 MG TAB PO SCH (21:22)
[2022-08-18] MEDS: HYDROcodone/Acetaminophen 10/325 mg Tablet PO PRN (21:35)
[2022-08-19] MEDS: Levothyroxine Sodium 100 MCG TAB PO SCH (06:28)
[2022-08-19] MEDS: HYDROcodone/Acetaminophen 10/325 mg Tablet PO PRN (06:28)
[2022-08-19 06:39] LABS: #Lymphocytes 1.3 thou/uL (1.20-3.40); #Monocytes 0.7 thou/uL (0.11-0.59); #Neutrophils 5.5 thou/uL (1.40-6.50); %Basophils 0.3 % (0.0-1.0); %Eosinophils 0.2 % (0.0-10.0); %Lymphocytes 16.9 % (21.0-51.0); %Monocytes 9.6 % (0.0-10.0); Hemoglobin 13.4 g/dL (14.0-18.0); Mean Corpuscular HGB CONC 34.3 g/dL (32.0-36.0); Mean Corpuscular Hemoglobin 36.2 pg (27.0-31.0); Mean Platelet Volume 6.7 fL (7.4-10.4); Platelet Count 102 10x3/uL (130-400); RBC Distribution Width 12.5 % (11.5-14.5); Red Blood Cell (RBC) Count 3.71 mill/uL (4.70-6.10); White Blood Cell (WBC) Count 7.5 10x3/uL (4.8-10.8)
[2022-08-19 06:56] LABS: Anion Gap 17 mmol/L (10-20); BUN (Urea Nitrogen) 41 mg/dL (8.4-25.7); Calc. Creatinine Clearance 18 mL/min (70-130); Calcium 9.5 mg/dL (7.8-10.44); Carbon Dioxide 26 mmol/L (23-31); Chloride 96 mmol/L (98-107); Estimated GFR 17; Glucose 84 mg/dL (83-110); Potassium 3.3 mmol/L (3.5-5.1); Sodium 136 mmol/L (136-145)
[2022-08-19] MEDS: Aspirin 81 mg Enteric Coated Tablet PO SCH (08:42)
[2022-08-19] MEDS: Gabapentin 300 MG CAP PO SCH ×3 (08:42→20:41)
[2022-08-19] MEDS: Carvedilol 6.25 MG TAB PO SCH ×2 (08:42→17:40)
[2022-08-19] MEDS ORDERED: Atorvastatin Calcium 40 MG TAB PO SCH (09:00)
[2022-08-19] MEDS: Famotidine 20 MG TAB PO SCH (20:42)
[2022-08-19] MEDS: Mirtazapine 30 MG Soltab PO SCH (20:47)
[2022-08-20 05:14] LABS: #Lymphocytes 1.5 thou/uL (1.20-3.40); #Monocytes 1.1 thou/uL (0.11-0.59); #Neutrophils 7.5 thou/uL (1.40-6.50); %Basophils 0.1 % (0.0-1.0); %Eosinophils 0.1 % (0.0-10.0); %Lymphocytes 14.7 % (21.0-51.0); %Monocytes 10.8 % (0.0-10.0); %Neutrophils 74.3 % (42.0-75.0); Hemoglobin 12.3 g/dL (14.0-18.0); Mean Corpuscular HGB CONC 33.5 g/dL (32.0-36.0); Mean Corpuscular Hemoglobin 35.7 pg (27.0-31.0); Platelet Count 127 10x3/uL (130-400); RBC Distribution Width 12.5 % (11.5-14.5); Red Blood Cell (RBC) Count 3.44 mill/uL (4.70-6.10)
[2022-08-20 05:39] LABS: Anion Gap 19 mmol/L (10-20); BUN (Urea Nitrogen) 72 mg/dL (8.4-25.7); Calc. Creatinine Clearance 12 mL/min (70-130); Calcium 9.2 mg/dL (7.8-10.44); Carbon Dioxide 22 mmol/L (23-31); Chloride 95 mmol/L (98-107); Estimated GFR 10; Glucose 102 mg/dL (83-110); Potassium 3.2 mmol/L (3.5-5.1); Sodium 133 mmol/L (136-145)
[2022-08-20] MEDS: Levothyroxine Sodium 100 MCG TAB PO SCH (05:54)
[2022-08-20] MEDS ORDERED: Clopidogrel Bisulfate 300 MG TAB PO SCH (07:30)
[2022-08-20] MEDS ORDERED: Potassium Chloride 20 MEQ TAB PO SCH (08:00)
[2022-08-20] MEDS ORDERED: Heparin 10,000 UNITS/ 10 ML VIAL ONE (08:53)
[2022-08-20] MEDS: CO Q-10 CAPSULE 100 MG PO SCH (08:59)
[2022-08-20] MEDS: Gabapentin 300 MG CAP PO SCH ×3 (09:00→21:08)
[2022-08-20] MEDS: Aspirin 81 mg Enteric Coated Tablet PO SCH (09:00)
[2022-08-20] MEDS: Carvedilol 6.25 MG TAB PO SCH ×2 (09:00→16:44)
[2022-08-20 10:20] LABS: HBSAg Index 0.24 S/CO (0-0.99); Hep B Core Total Ab Non-Reactive (NonReactive); Hep B Core Total Index 0.07 S/CO (0-0.79); Hep B Surf Ag Non-Reactive S/CO (NonReactive); Hep C IgG Ab Non-Reactive (NonReactive)
[2022-08-20 10:22] LABS: HBSAB Concentration 12.77 mIU/mL; Hep B Surf AB Reactive (NonReactive)
[2022-08-20] MEDS: Mirtazapine 30 MG Soltab PO SCH (21:08)
[2022-08-20] MEDS: Famotidine 20 MG TAB PO SCH (21:08)
[2022-08-21 04:56] LABS: #Lymphocytes 1.3 thou/uL (1.20-3.40); #Monocytes 1.1 thou/uL (0.11-0.59); #Neutrophils 10.8 thou/uL (1.40-6.50); %Basophils 0.1 % (0.0-1.0); %Lymphocytes 10.2 % (21.0-51.0); %Monocytes 8.2 % (0.0-10.0); %Neutrophils 81.5 % (42.0-75.0); Hemoglobin 12.7 g/dL (14.0-18.0); Mean Corpuscular HGB CONC 32.1 g/dL (32.0-36.0); Mean Corpuscular Hemoglobin 34.6 pg (27.0-31.0); Mean Platelet Volume 6.8 fL (7.4-10.4); Platelet Count 126 10x3/uL (130-400); RBC Distribution Width 12.5 % (11.5-14.5); Red Blood Cell (RBC) Count 3.67 mill/uL (4.70-6.10); White Blood Cell (WBC) Count 13.2 10x3/uL (4.8-10.8)
[2022-08-21 05:18] LABS: Anion Gap 20 mmol/L (10-20); BUN (Urea Nitrogen) 50 mg/dL (8.4-25.7); Calc. Creatinine Clearance 13 mL/min (70-130); Calcium 9.6 mg/dL (7.8-10.44); Carbon Dioxide 25 mmol/L (23-31); Chloride 96 mmol/L (98-107); Estimated GFR 11; Glucose 105 mg/dL (83-110); Potassium 3.9 mmol/L (3.5-5.1); Sodium 137 mmol/L (136-145)
[2022-08-21] MEDS: Levothyroxine Sodium 100 MCG TAB PO SCH (06:06)
[2022-08-21] MEDS: Carvedilol 6.25 MG TAB PO SCH ×2 (08:37→16:09)
[2022-08-21] MEDS: Clopidogrel Bisulfate 75 MG TAB PO SCH (08:37)
[2022-08-21] MEDS: Aspirin 81 mg Enteric Coated Tablet PO SCH (08:37)
[2022-08-21] MEDS: Gabapentin 300 MG CAP PO SCH ×3 (08:37→21:03)
[2022-08-21] MEDS: CO Q-10 CAPSULE 100 MG PO SCH (08:37)
[2022-08-21] MEDS: Guaifenesin DM 100-10/5 ML UDCUP PO PRN (14:18)
[2022-08-21] MEDS ORDERED: Sodium Chloride 0.9% 500 ML IVPB SCH (16:45)
[2022-08-21] MEDS: Mirtazapine 30 MG Soltab PO SCH (21:04)
[2022-08-22 04:52] LABS: #Lymphocytes 0.9 thou/uL (1.20-3.40); #Monocytes 0.6 thou/uL (0.11-0.59); #Neutrophils 10.5 thou/uL (1.40-6.50); %Basophils 0.1 % (0.0-1.0); %Eosinophils 0.1 % (0.0-10.0); %Lymphocytes 7.8 % (21.0-51.0); %Monocytes 5.1 % (0.0-10.0); %Neutrophils 86.9 % (42.0-75.0); Hemoglobin 11.6 g/dL (14.0-18.0); Mean Corpuscular HGB CONC 33.7 g/dL (32.0-36.0); Mean Corpuscular Hemoglobin 35.8 pg (27.0-31.0); Mean Platelet Volume 6.9 fL (7.4-10.4); Platelet Count 110 10x3/uL (130-400); RBC Distribution Width 12.2 % (11.5-14.5); Red Blood Cell (RBC) Count 3.23 mill/uL (4.70-6.10); White Blood Cell (WBC) Count 12.1 10x3/uL (4.8-10.8)
[2022-08-22 05:10] LABS: Anion Gap 21 mmol/L (10-20); BUN (Urea Nitrogen) 77 mg/dL (8.4-25.7); Calc. Creatinine Clearance 9 mL/min (70-130); Calcium 8.9 mg/dL (7.8-10.44); Carbon Dioxide 21 mmol/L (23-31); Chloride 96 mmol/L (98-107); Estimated GFR 8; Glucose 108 mg/dL (83-110); Potassium 3.7 mmol/L (3.5-5.1); Sodium 134 mmol/L (136-145)
[2022-08-22] MEDS: Levothyroxine Sodium 100 MCG TAB PO SCH (06:13)
[2022-08-22] MEDS ORDERED: Albumin 25% 25 GM/100 ML BOT IVPB SCH ×2 (09:00→09:15)
[2022-08-22] MEDS: Carvedilol 6.25 MG TAB PO SCH ×2 (13:05→16:23)
[2022-08-22] MEDS: Clopidogrel Bisulfate 75 MG TAB PO SCH (13:06)
[2022-08-22] MEDS: Aspirin 81 mg Enteric Coated Tablet PO SCH (13:06)
[2022-08-22] MEDS: Gabapentin 300 MG CAP PO SCH ×3 (13:06→21:06)
[2022-08-22] MEDS: CO Q-10 CAPSULE 100 MG PO SCH (13:10)
[2022-08-22] MEDS: Guaifenesin DM 100-10/5 ML UDCUP PO PRN (13:23)
[2022-08-22] MEDS: Mirtazapine 30 MG Soltab PO SCH (21:07)
[2022-08-23] MEDS ORDERED: Loperamide HCl 2 MG CAP PO PRN (01:04)
[2022-08-23] MEDS: HYDROcodone/Acetaminophen 10/325 mg Tablet PO PRN (01:20)
[2022-08-23] MEDS: Levothyroxine Sodium 100 MCG TAB PO SCH (05:23)
[2022-08-23 09:17] LABS: #Lymphocytes 1.2 thou/uL (1.20-3.40); #Monocytes 0.7 thou/uL (0.11-0.59); #Neutrophils 5.9 thou/uL (1.40-6.50); %Basophils 0.2 % (0.0-1.0); %Eosinophils 0.5 % (0.0-10.0); %Lymphocytes 15.4 % (21.0-51.0); %Monocytes 9.4 % (0.0-10.0); %Neutrophils 74.5 % (42.0-75.0); Hemoglobin 11.6 g/dL (14.0-18.0); Mean Corpuscular HGB CONC 32.9 g/dL (32.0-36.0); Mean Corpuscular Hemoglobin 35.2 pg (27.0-31.0); Mean Platelet Volume 7.1 fL (7.4-10.4); Platelet Count 113 10x3/uL (130-400); RBC Distribution Width 12.1 % (11.5-14.5); White Blood Cell (WBC) Count 7.9 10x3/uL (4.8-10.8)
[2022-08-23 09:21] LABS: ALT (SGPT) 52 U/L (8-55); AST (SGOT) 74 U/L (5-34); Alkaline Phosphatase 55 U/L (40-110); Anion Gap 19 mmol/L (10-20); BUN (Urea Nitrogen) 60 mg/dL (8.4-25.7); Bilirubin, Total 0.7 mg/dL (0.2-1.2); Calc. Creatinine Clearance 11 mL/min (70-130); Calcium 9.5 mg/dL (7.8-10.44); Carbon Dioxide 26 mmol/L (23-31); Chloride 94 mmol/L (98-107); Estimated GFR 9; Globulin 2.9 g/dL (2.4-3.5); Glucose 91 mg/dL (83-110); Potassium 3.7 mmol/L (3.5-5.1); Protein, Total 6.9 g/dL (5.8-8.1); Sodium 135 mmol/L (136-145)
[2022-08-23] MEDS: CO Q-10 CAPSULE 100 MG PO SCH (10:43)
[2022-08-23] MEDS: Aspirin 81 mg Enteric Coated Tablet PO SCH (10:43)
[2022-08-23] MEDS: Clopidogrel Bisulfate 75 MG TAB PO SCH (10:43)
[2022-08-23] MEDS: Carvedilol 6.25 MG TAB PO SCH ×2 (10:43→18:19)
[2022-08-23 13:30] LABS: Actual Bicarbonate (HCO3v) 25 mEq/L (22-28); Base Excess -0.8 mEq/L (-2.0 to +3.0); Calcium, Ionized (venous) 1.08 mmol/L (1.16-1.32); Chloride (VBG) 93 mmol/L (98-106); Hemoglobin (Hb) 12.6 g/dL (12.6-17.4); Potassium (VBG) 3.78 mmol/L (3.70-5.30); Sodium 134.1 mmol/L (133-146); pH (venous) 7.34 (7.32-7.43)
[2022-08-23] MEDS ORDERED: GUAIFENESIN SF SOLN 200 MG/10 ML UDCUP PO PRN (18:15)
[2022-08-24 05:11] LABS: #Eosinphils 0.1 thou/uL (0.0-0.7); #Lymphocytes 0.9 thou/uL (1.20-3.40); #Monocytes 0.9 thou/uL (0.11-0.59); #Neutrophils 5.1 thou/uL (1.40-6.50); %Basophils 0.2 % (0.0-1.0); %Eosinophils 1.1 % (0.0-10.0); %Lymphocytes 12.7 % (21.0-51.0); %Monocytes 12.7 % (0.0-10.0); %Neutrophils 73.4 % (42.0-75.0); Hemoglobin 12.7 g/dL (14.0-18.0); Mean Corpuscular HGB CONC 34.5 g/dL (32.0-36.0); Mean Corpuscular Hemoglobin 36.7 pg (27.0-31.0); Mean Platelet Volume 7.1 fL (7.4-10.4); Platelet Count 140 10x3/uL (130-400); RBC Distribution Width 12.1 % (11.5-14.5); Red Blood Cell (RBC) Count 3.45 mill/uL (4.70-6.10)
[2022-08-24 05:30] LABS: Anion Gap 23 mmol/L (10-20); BUN (Urea Nitrogen) 82 mg/dL (8.4-25.7); Calc. Creatinine Clearance 8 mL/min (70-130); Calcium 9.7 mg/dL (7.8-10.44); Carbon Dioxide 22 mmol/L (23-31); Chloride 94 mmol/L (98-107); Estimated GFR 7; Glucose 91 mg/dL (83-110); Potassium 4.7 mmol/L (3.5-5.1); Sodium 134 mmol/L (136-145)
[2022-08-24] MEDS: Levothyroxine Sodium 100 MCG TAB PO SCH (05:46)
[2022-08-24] MEDS: Aspirin 81 mg Enteric Coated Tablet PO SCH (09:37)
[2022-08-24] MEDS: Clopidogrel Bisulfate 75 MG TAB PO SCH (09:37)
[2022-08-24] MEDS: CO Q-10 CAPSULE 100 MG PO SCH (09:37)
[2022-08-24] MEDS: Carvedilol 6.25 MG TAB PO SCH ×2 (09:38→17:12)
[2022-08-24] MEDS: Folic Acid/Vit B Comp W-C PO SCH (21:49)
[2022-08-25] MEDS: Levothyroxine Sodium 100 MCG TAB PO SCH (05:11)
[2022-08-25] MEDS: Clopidogrel Bisulfate 75 MG TAB PO SCH (08:34)
[2022-08-25] MEDS: CO Q-10 CAPSULE 100 MG PO SCH (08:34)
[2022-08-25] MEDS: Aspirin 81 mg Enteric Coated Tablet PO SCH (08:34)
[2022-08-25] MEDS: Carvedilol 6.25 MG TAB PO SCH ×2 (08:34→17:47)
[2022-08-25] MEDS: Atorvastatin Calcium 40 MG TAB PO SCH (20:41)
[2022-08-25] MEDS: Folic Acid/Vit B Comp W-C PO SCH (20:41)
[2022-08-26 05:05] LABS: Anion Gap 27 mmol/L (10-20); Calc. Creatinine Clearance 6 mL/min (70-130); Calcium 9.7 mg/dL (7.8-10.44); Carbon Dioxide 18 mmol/L (23-31); Chloride 92 mmol/L (98-107); Estimated GFR 4; Glucose 104 mg/dL (83-110); Sodium 132 mmol/L (136-145)
[2022-08-26 05:29] LABS: Band 9 % (5-11); Hemoglobin 12.7 g/dL (14.0-18.0); Hypochromia SLIGHT = 6-15 cells (100X) (0-5/hpf); Lymphocytes 10 % (21-51); MDiff Complete? YES; Macrocytosis SLIGHT = 6-15 cells (100X) (0-5/hpf); Mean Corpuscular HGB CONC 34.3 g/dL (32.0-36.0); Mean Corpuscular Hemoglobin 36.1 pg (27.0-31.0); Mean Platelet Volume 7.4 fL (7.4-10.4); Monocytes 11 % (0-10); Neutrophil 66 % (42-75); Platelet Count 183 10x3/uL (130-400); Platelet Morphology Comment Appears Adequate; Reactive Lymphocytes 4 % (0-10); Red Blood Cell (RBC) Count 3.51 mill/uL (4.70-6.10); White Blood Cell (WBC) Count 9.9 10x3/uL (4.8-10.8)
[2022-08-26] MEDS: Levothyroxine Sodium 100 MCG TAB PO SCH (05:37)
[2022-08-26 05:44] LABS: BUN (Urea Nitrogen) 118 mg/dL (8.4-25.7)
[2022-08-26] MEDS: Aspirin 81 mg Enteric Coated Tablet PO SCH (08:31)
[2022-08-26] MEDS: Carvedilol 6.25 MG TAB PO SCH ×2 (08:31→20:18)
[2022-08-26] MEDS: CO Q-10 CAPSULE 100 MG PO SCH (08:31)
[2022-08-26] MEDS: Clopidogrel Bisulfate 75 MG TAB PO SCH (08:31)
[2022-08-26] MEDS ORDERED: Heparin 10,000 UNITS/ 10 ML VIAL ONE (08:51)
[2022-08-26] MEDS: Gabapentin 100 MG CAP PO SCH (20:29)
[2022-08-26] MEDS: Folic Acid/Vit B Comp W-C PO SCH (20:29)
[2022-08-26] MEDS: Atorvastatin Calcium 40 MG TAB PO SCH (20:29)
[2022-08-27 05:16] LABS: Anion Gap 21 mmol/L (10-20); BUN (Urea Nitrogen) 64 mg/dL (8.4-25.7); Calc. Creatinine Clearance 10 mL/min (70-130); Calcium 9.3 mg/dL (7.8-10.44); Carbon Dioxide 27 mmol/L (23-31); Chloride 93 mmol/L (98-107); Estimated GFR 8; Glucose 82 mg/dL (83-110); Potassium 4.1 mmol/L (3.5-5.1); Sodium 137 mmol/L (136-145)
[2022-08-27] MEDS: Levothyroxine Sodium 100 MCG TAB PO SCH (05:18)
[2022-08-27 05:29] LABS: Band 1 % (5-11); Hemoglobin 12.4 g/dL (14.0-18.0); Lymphocytes 22 % (21-51); MDiff Complete? YES; Macrocytosis MODERATE=16-30 cells (100X) (0-5/hpf); Mean Corpuscular HGB CONC 32.5 g/dL (32.0-36.0); Mean Corpuscular Hemoglobin 34.5 pg (27.0-31.0); Mean Platelet Volume 7.2 fL (7.4-10.4); Monocytes 17 % (0-10); Neutrophil 60 % (42-75); Ovalocytes SLIGHT = 2-5 cells (100X) (0-1/hpf); Platelet Count 226 10x3/uL (130-400); Platelet Morphology Comment Appears Adequate; RBC Distribution Width 11.9 % (11.5-14.5); Red Blood Cell (RBC) Count 3.61 mill/uL (4.70-6.10); White Blood Cell (WBC) Count 5.8 10x3/uL (4.8-10.8)
[2022-08-27] MEDS: Clopidogrel Bisulfate 75 MG TAB PO SCH (11:43)
[2022-08-27] MEDS: Aspirin 81 mg Enteric Coated Tablet PO SCH (11:44)
[2022-08-27] MEDS: CO Q-10 CAPSULE 100 MG PO SCH (11:44)
[2022-08-27] MEDS: Gabapentin 100 MG CAP PO SCH (22:17)
[2022-08-27] MEDS: Folic Acid/Vit B Comp W-C PO SCH (22:19)
[2022-08-27] MEDS: Atorvastatin Calcium 40 MG TAB PO SCH (22:19)
[2022-08-28 04:43] LABS: #Eosinphils 0.1 thou/uL (0.0-0.7); #Lymphocytes 1.3 thou/uL (1.20-3.40); #Monocytes 0.7 thou/uL (0.11-0.59); #Neutrophils 3.8 thou/uL (1.40-6.50); %Eosinophils 2.5 % (0.0-10.0); %Lymphocytes 21.4 % (21.0-51.0); %Monocytes 11.7 % (0.0-10.0); %Neutrophils 64.4 % (42.0-75.0); Mean Corpuscular HGB CONC 33.2 g/dL (32.0-36.0); Mean Corpuscular Hemoglobin 35.5 pg (27.0-31.0); Mean Platelet Volume 7.2 fL (7.4-10.4); Platelet Count 224 10x3/uL (130-400); RBC Distribution Width 11.8 % (11.5-14.5); Red Blood Cell (RBC) Count 3.38 mill/uL (4.70-6.10)
[2022-08-28 05:03] LABS: Anion Gap 26 mmol/L (10-20); BUN (Urea Nitrogen) 82 mg/dL (8.4-25.7); Calc. Creatinine Clearance 8 mL/min (70-130); Calcium 9.5 mg/dL (7.8-10.44); Carbon Dioxide 22 mmol/L (23-31); Chloride 93 mmol/L (98-107); Estimated GFR 6; Glucose 77 mg/dL (83-110); Potassium 3.8 mmol/L (3.5-5.1); Sodium 137 mmol/L (136-145)
[2022-08-28] MEDS: Levothyroxine Sodium 100 MCG TAB PO SCH (06:31)
[2022-08-28] MEDS: Carvedilol 6.25 MG TAB PO SCH ×2 (09:00→13:17)
[2022-08-28 09:41] VITALS: TEMP 97.8
[2022-08-28] MEDS: Aspirin 81 mg Enteric Coated Tablet PO SCH (13:14)
[2022-08-28] MEDS: CO Q-10 CAPSULE 100 MG PO SCH (13:14)
[2022-08-28] MEDS: Clopidogrel Bisulfate 75 MG TAB PO SCH (13:14)
[2022-08-28 13:15] VITALS: BP 110/57
== END 2022-08-28 14:00 | DRG 280 ==
LOC: ERS 08:24 → INTOOBSV 10:35 → ERHOLD 10:35 → 2NO 14:35 → OBSVTOIN 08-20 13:15
PROVIDERS: ADMIT Family Medicine; ATTEND Internal Medicine
PROC: 5A1D70Z Performance of Urinary Filtration, Intermittent, Less than 6 Hours Per Day (ICD-10-PCS; principal; 2022-08-20)
DX: I21.4 Non-ST elevation (NSTEMI) myocardial infarction (principal); G92.8 Other toxic encephalopathy; N18.6 End stage renal disease; N39.0 Urinary tract infection, site not specified; I13.2 Hypertensive heart and chronic kidney disease with heart failure and with stage 5 chronic kidney disease, or end stage renal disease; I50.32 Chronic diastolic (congestive) heart failure; N17.9 Acute kidney failure, unspecified; E87.20 Acidosis, unspecified; E87.1 Hypo-osmolality and hyponatremia; Z51.5 Encounter for palliative care; E03.9 Hypothyroidism, unspecified; N40.0 Benign prostatic hyperplasia without lower urinary tract symptoms; E78.5 Hyperlipidemia, unspecified; D63.1 Anemia in chronic kidney disease; I25.10 Atherosclerotic heart disease of native coronary artery without angina pectoris; R29.6 Repeated falls; I44.1 Atrioventricular block, second degree; D69.6 Thrombocytopenia, unspecified; E87.6 Hypokalemia; Z88.0 Allergy status to penicillin; Z79.890 Hormone replacement therapy; Z79.899 Other long term (current) drug therapy; Z95.1 Presence of aortocoronary bypass graft; Z99.2 Dependence on renal dialysis; Z95.0 Presence of cardiac pacemaker; T42.6X5A Adverse effect of other antiepileptic and sedative-hypnotic drugs, initial encounter; M54.9 Dorsalgia, unspecified; G89.29 Other chronic pain
CPT/HCPCS: 36415; 36416; 70450; 71045; 80048; 80053; 81003; 81015; 82550; 82553; 82805; 84484; 85025; 86704; 87086; 90935; 93005; 93306; 96365; 96372; G0257; G0378; J1644; J1650; J1956; J7030; P9047

== ENCOUNTER 2022-11-26 18:47 | Inpatient (IN) | payer MEDICARE ==
[2022-11-26 20:03] LABS: #Monocytes 0.6 thou/uL (0.11-0.59); #Neutrophils 10.5 thou/uL (1.40-6.50); %Basophils 0.2 % (0.0-1.0); %Eosinophils 0.1 % (0.0-10.0); %Lymphocytes 6.3 % (21.0-51.0); %Monocytes 5.3 % (0.0-10.0); %Neutrophils 87.8 % (42.0-75.0); Hemoglobin 11.6 g/dL (14.0-18.0); Mean Corpuscular HGB CONC 31.6 g/dL (32.0-36.0); Mean Corpuscular Hemoglobin 37.2 pg (27.0-31.0); Mean Corpuscular Volume 117.6 fl (78.0-98.0); Mean Platelet Volume 9.5 fL (7.4-10.4); Platelet Count 121 10x3/uL (130-400); RBC Distribution Width 17.3 % (11.5-14.5); Red Blood Cell (RBC) Count 3.12 mill/uL (4.70-6.10)
[2022-11-26 20:24] LABS: ALT (SGPT) 66 U/L (8-55); AST (SGOT) 184 U/L (5-34); Albumin 2.5 g/dL (3.4-4.8); Alkaline Phosphatase 121 U/L (40-110); Anion Gap 19 mmol/L (10-20); BUN (Urea Nitrogen) 31 mg/dL (8.4-25.7); Calc. Creatinine Clearance 0 mL/min (70-130); Carbon Dioxide 17 mmol/L (23-31); Chloride 103 mmol/L (98-107); Estimated GFR 15; Globulin 2.2 g/dL (2.4-3.5); Glucose 82 mg/dL (83-110); Potassium 3.5 mmol/L (3.5-5.1); Protein, Total 4.7 g/dL (5.8-8.1); Sodium 135 mmol/L (136-145)
[2022-11-26 20:26] LABS: Anisocytosis SLIGHT = 6-15 cells HPF (0-5); Burr Cells MODERATE= 6-15 cells HPF (0-1); CellaVision Operator ID LAB.KB; Macrocytosis SLIGHT = 6-15 cells HPF (0-5); Platelet Adequacy Comment Platelets Decreased
[2022-11-26] MEDS ORDERED: Thiamine HCl 200 MG/2 ML VIAL SLOW IVP SCH (22:00)
[2022-11-26] MEDS ORDERED: Ondansetron PF 4 MG/2 ML Vial IVP PRN (22:43)
[2022-11-26] MEDS ORDERED: Senokot S 8.6-50 MG TAB PO PRN (22:43)
[2022-11-26] MEDS ORDERED: Ondansetron ODT 4 MG TAB PO PRN (22:43)
[2022-11-27 00:35] LABS: Bilirubin Negative (Negative); Blood, Urine 3+ (Negative); CAUTI Indications for Culture Pelvic or flank pain; Clarity Extra Turbid (Clear); Glucose, Urine (Dipstick) Normal (Negative); Ketone, Urine Negative (Negative); Leukocyte 500 Leu/uL (Negative); Nitrite Negative (Negative); Protein, Urine (Dipstick) 50 mg/dL (Neg-Trace); RBC/HPF 21-50 HPF (0-3); Specific Gravity, Urine 1.025 (1.002-1.036); Squamous Epithelial 0-3 HPF (0-3); Urobilinogen Normal mg/dL (Less than 2); WBC/HPF Greater than 50 HPF (0-3); pH, Urine 5.5 (5.0-9.0)
[2022-11-27 00:36] LABS: Bacteria/HPF 1+ HPF (None Seen); Urine Culture Reflex Yes Yes
[2022-11-27] MEDS: cefTRIAXone\\ROCEPHIN 1 GM in Sodium Chloride 0.9% 100 ML IVPB SCH (01:24)
[2022-11-27 02:18] VITALS: BMI 21.4
[2022-11-27 05:10] LABS: #Monocytes 0.7 thou/uL (0.11-0.59); #Neutrophils 9.3 thou/uL (1.40-6.50); %Basophils 0.4 % (0.0-1.0); %Eosinophils 0.2 % (0.0-10.0); %Lymphocytes 7.6 % (21.0-51.0); %Monocytes 6.3 % (0.0-10.0); Hemoglobin 11.6 g/dL (14.0-18.0); Mean Corpuscular HGB CONC 33.2 g/dL (32.0-36.0); Mean Corpuscular Hemoglobin 37.1 pg (27.0-31.0); Mean Platelet Volume 9.6 fL (7.4-10.4); RBC Distribution Width 17.5 % (11.5-14.5); Red Blood Cell (RBC) Count 3.13 mill/uL (4.70-6.10); White Blood Cell (WBC) Count 10.9 10x3/uL (4.8-10.8)
[2022-11-27 05:19] LABS: ALT (SGPT) 92 U/L (8-55); AST (SGOT) 255 U/L (5-34); Albumin 2.4 g/dL (3.4-4.8); Alkaline Phosphatase 124 U/L (40-110); Anion Gap 17 mmol/L (10-20); BUN (Urea Nitrogen) 32 mg/dL (8.4-25.7); Bilirubin, Total 0.6 mg/dL (0.2-1.2); Calc. Creatinine Clearance 14 mL/min (70-130); Carbon Dioxide 17 mmol/L (23-31); Chloride 103 mmol/L (98-107); Estimated GFR 15; Globulin 2.1 g/dL (2.4-3.5); Glucose 74 mg/dL (83-110); Magnesium 1.6 mg/dL (1.6-2.6); Potassium 3.3 mmol/L (3.5-5.1); Protein, Total 4.5 g/dL (5.8-8.1); Sodium 134 mmol/L (136-145)
[2022-11-27 05:35] LABS: Phosphorus 3.6 mg/dL (2.3-4.7)
[2022-11-27 05:39] LABS: Mean Corpuscular Volume 111.5 fl (78.0-98.0)
[2022-11-27 05:40] LABS: Platelet Count 115 10x3/uL (130-400)
[2022-11-27] MEDS: Saccharomyces boulardii 250 MG CAP PO SCH (08:29)
[2022-11-27] MEDS: Heparin 5,000 UNITS/ML VIAL SC SCH ×2 (08:29→20:29)
[2022-11-28] MEDS: cefTRIAXone\\ROCEPHIN 1 GM in Sodium Chloride 0.9% 100 ML IVPB SCH (01:00)
[2022-11-28 05:23] LABS: #Eosinphils 0.1 thou/uL (0.0-0.7); #Monocytes 0.6 thou/uL (0.11-0.59); #Neutrophils 6.7 thou/uL (1.40-6.50); %Basophils 0.2 % (0.0-1.0); %Eosinophils 0.6 % (0.0-10.0); %Lymphocytes 12.1 % (21.0-51.0); %Monocytes 7.2 % (0.0-10.0); %Neutrophils 79.4 % (42.0-75.0); Hemoglobin 11.5 g/dL (14.0-18.0); Mean Corpuscular HGB CONC 31.9 g/dL (32.0-36.0); Mean Corpuscular Hemoglobin 37.2 pg (27.0-31.0); Mean Platelet Volume 9.5 fL (7.4-10.4); Platelet Count 133 10x3/uL (130-400); RBC Distribution Width 17.9 % (11.5-14.5); Red Blood Cell (RBC) Count 3.09 mill/uL (4.70-6.10); White Blood Cell (WBC) Count 8.4 10x3/uL (4.8-10.8)
[2022-11-28 05:33] LABS: Mean Corpuscular Volume 116.8 fl (78.0-98.0)
[2022-11-28 05:47] LABS: ALT (SGPT) 120 U/L (8-55); AST (SGOT) 278 U/L (5-34); Albumin 2.5 g/dL (3.4-4.8); Alkaline Phosphatase 139 U/L (40-110); Anion Gap 17 mmol/L (10-20); BUN (Urea Nitrogen) 39 mg/dL (8.4-25.7); Bilirubin, Total 0.5 mg/dL (0.2-1.2); Calc. Creatinine Clearance 13 mL/min (70-130); Carbon Dioxide 18 mmol/L (23-31); Chloride 103 mmol/L (98-107); Estimated GFR 14; Globulin 2.3 g/dL (2.4-3.5); Glucose 69 mg/dL (83-110); Potassium 3.3 mmol/L (3.5-5.1); Protein, Total 4.8 g/dL (5.8-8.1); Sodium 135 mmol/L (136-145)
[2022-11-28 06:07] LABS: HBCM Index 0.06 S/CO (0-0.79); HBSAg Index 0.18 S/CO (0-0.99); Hep A IgM AB Non-Reactive S/CO (NonReactive); Hep A IgM S/CO 0.36 S/CO (0-0.79); Hep B Surf Ag Non-Reactive S/CO (NonReactive); Hep C IgG Ab Non-Reactive S/CO (NonReactive); Hep C Index 0.07 S/CO (0-0.79); Hepatitis B Core IgM Abs Non-Reactive S/CO (NonReactive)
[2022-11-28] MEDS ORDERED: Heparin 10,000 UNITS/ 10 ML VIAL ONE (08:45)
[2022-11-28] MEDS: Heparin 5,000 UNITS/ML VIAL SC SCH ×2 (08:58→20:15)
[2022-11-28] MEDS: Saccharomyces boulardii 250 MG CAP PO SCH (08:58)
[2022-11-28] MEDS: Acetaminophen 325 MG TAB PO PRN (20:16)
[2022-11-29] MEDS: cefTRIAXone\\ROCEPHIN 1 GM in Sodium Chloride 0.9% 100 ML IVPB SCH (01:08)
[2022-11-29 05:43] LABS: #Monocytes 0.6 thou/uL (0.11-0.59); #Neutrophils 4.6 thou/uL (1.40-6.50); %Basophils 0.3 % (0.0-1.0); %Eosinophils 0.6 % (0.0-10.0); %Lymphocytes 16.2 % (21.0-51.0); %Monocytes 9.2 % (0.0-10.0); %Neutrophils 72.9 % (42.0-75.0); Mean Corpuscular HGB CONC 32.4 g/dL (32.0-36.0); Mean Corpuscular Hemoglobin 36.7 pg (27.0-31.0); Mean Platelet Volume 9.4 fL (7.4-10.4); RBC Distribution Width 17.9 % (11.5-14.5); White Blood Cell (WBC) Count 6.3 10x3/uL (4.8-10.8)
[2022-11-29 05:48] LABS: Platelet Count 117 10x3/uL (130-400)
[2022-11-29 05:49] LABS: Mean Corpuscular Volume 113.3 fl (78.0-98.0)
[2022-11-29 05:54] LABS: ALT (SGPT) 73 U/L (8-55); AST (SGOT) 132 U/L (5-34); Albumin 2.3 g/dL (3.4-4.8); Alkaline Phosphatase 125 U/L (40-110); Anion Gap 16 mmol/L (10-20); BUN (Urea Nitrogen) 24 mg/dL (8.4-25.7); Bilirubin, Total 0.5 mg/dL (0.2-1.2); Calc. Creatinine Clearance 21 mL/min (70-130); Calcium 7.8 mg/dL (7.8-10.44); Carbon Dioxide 19 mmol/L (23-31); Chloride 101 mmol/L (98-107); Estimated GFR 26; Globulin 2.6 g/dL (2.4-3.5); Glucose 82 mg/dL (83-110); Potassium 3.4 mmol/L (3.5-5.1); Protein, Total 4.9 g/dL (5.8-8.1); Sodium 133 mmol/L (136-145)
[2022-11-29] MEDS: Saccharomyces boulardii 250 MG CAP PO SCH (09:20)
[2022-11-29] MEDS: Heparin 5,000 UNITS/ML VIAL SC SCH ×2 (09:48→20:16)
[2022-11-29] MEDS: Acetaminophen 325 MG TAB PO PRN ×2 (12:10→20:16)
[2022-11-30] MEDS: cefTRIAXone\\ROCEPHIN 1 GM in Sodium Chloride 0.9% 100 ML IVPB SCH (00:58)
[2022-11-30 05:12] LABS: #Eosinphils 0.1 thou/uL (0.0-0.7); #Monocytes 0.6 thou/uL (0.11-0.59); #Neutrophils 3.2 thou/uL (1.40-6.50); %Basophils 0.4 % (0.0-1.0); %Eosinophils 1.7 % (0.0-10.0); %Lymphocytes 24.1 % (21.0-51.0); %Monocytes 11.9 % (0.0-10.0); %Neutrophils 61.1 % (42.0-75.0); Hemoglobin 11.2 g/dL (14.0-18.0); Mean Corpuscular HGB CONC 32.3 g/dL (32.0-36.0); Mean Corpuscular Hemoglobin 37.3 pg (27.0-31.0); Mean Platelet Volume 9.9 fL (7.4-10.4); Platelet Count 136 10x3/uL (130-400); RBC Distribution Width 17.7 % (11.5-14.5); White Blood Cell (WBC) Count 5.2 10x3/uL (4.8-10.8)
[2022-11-30 05:35] LABS: Mean Corpuscular Volume 115.7 fl (78.0-98.0)
[2022-11-30 05:36] LABS: ALT (SGPT) 57 U/L (8-55); AST (SGOT) 72 U/L (5-34); Albumin 2.6 g/dL (3.4-4.8); Alkaline Phosphatase 114 U/L (40-110); Anion Gap 13 mmol/L (10-20); BUN (Urea Nitrogen) 45 mg/dL (8.4-25.7); Bilirubin, Total 0.6 mg/dL (0.2-1.2); Calc. Creatinine Clearance 20 mL/min (70-130); Carbon Dioxide 24 mmol/L (23-31); Chloride 99 mmol/L (98-107); Estimated GFR 23; Globulin 2.1 g/dL (2.4-3.5); Glucose 87 mg/dL (83-110); Potassium 3.3 mmol/L (3.5-5.1); Protein, Total 4.7 g/dL (5.8-8.1); Sodium 133 mmol/L (136-145)
[2022-11-30] MEDS: Heparin 5,000 UNITS/ML VIAL SC SCH ×2 (09:58→22:20)
[2022-11-30] MEDS: Saccharomyces boulardii 250 MG CAP PO SCH (09:59)
[2022-11-30] MEDS ORDERED: Potassium Chloride 20 MEQ TAB PO SCH ×2 (10:00→21:00)
[2022-11-30] MEDS: Acetaminophen 325 MG TAB PO PRN ×4 (10:05→22:19)
[2022-12-01] MEDS: cefTRIAXone\\ROCEPHIN 1 GM in Sodium Chloride 0.9% 100 ML IVPB SCH (00:35)
[2022-12-01] MEDS: Acetaminophen 325 MG TAB PO PRN ×4 (01:34→20:27)
[2022-12-01] MEDS ORDERED: Morphine 2 MG/ML VIAL SLOW IVP SCH (03:00)
[2022-12-01 05:42] LABS: #Eosinphils 0.1 thou/uL (0.0-0.7); #Monocytes 0.8 thou/uL (0.11-0.59); #Neutrophils 3.5 thou/uL (1.40-6.50); %Basophils 0.5 % (0.0-1.0); %Eosinophils 1.7 % (0.0-10.0); %Lymphocytes 22.2 % (21.0-51.0); %Monocytes 13.8 % (0.0-10.0); %Neutrophils 60.4 % (42.0-75.0); Hemoglobin 11.1 g/dL (14.0-18.0); Mean Corpuscular HGB CONC 32.2 g/dL (32.0-36.0); Mean Corpuscular Hemoglobin 36.8 pg (27.0-31.0); Mean Corpuscular Volume 114.2 fl (78.0-98.0); Mean Platelet Volume 9.7 fL (7.4-10.4); Platelet Count 121 10x3/uL (130-400); RBC Distribution Width 17.5 % (11.5-14.5); Red Blood Cell (RBC) Count 3.02 mill/uL (4.70-6.10); White Blood Cell (WBC) Count 5.9 10x3/uL (4.8-10.8)
[2022-12-01 06:07] LABS: Anion Gap 16 mmol/L (10-20); BUN (Urea Nitrogen) 61 mg/dL (8.4-25.7); Bilirubin, Total 0.4 mg/dL (0.2-1.2); Calc. Creatinine Clearance 20 mL/min (70-130); Calcium 8.1 mg/dL (7.8-10.44); Carbon Dioxide 20 mmol/L (23-31); Chloride 102 mmol/L (98-107); Estimated GFR 23; Glucose 90 mg/dL (83-110); Potassium 4.6 mmol/L (3.5-5.1); Sodium 133 mmol/L (136-145)
[2022-12-01 06:08] LABS: ALT (SGPT) 46 U/L (8-55); AST (SGOT) 45 U/L (5-34); Albumin 2.5 g/dL (3.4-4.8); Alkaline Phosphatase 105 U/L (40-110); Globulin 2.3 g/dL (2.4-3.5); Protein, Total 4.8 g/dL (5.8-8.1)
[2022-12-01] MEDS: Saccharomyces boulardii 250 MG CAP PO SCH (09:10)
[2022-12-01] MEDS: Heparin 5,000 UNITS/ML VIAL SC SCH ×2 (09:10→20:28)
[2022-12-01] MEDS: HYDROcodone/Acetaminophen 5/325 mg Tablet PO PRN (23:14)
[2022-12-02] MEDS: cefTRIAXone\\ROCEPHIN 1 GM in Sodium Chloride 0.9% 100 ML IVPB SCH (01:39)
[2022-12-02] MEDS: Saccharomyces boulardii 250 MG CAP PO SCH (08:51)
[2022-12-02] MEDS: Acetaminophen 325 MG TAB PO PRN ×2 (08:52→20:31)
[2022-12-02] MEDS ORDERED: Heparin 10,000 UNITS/ 10 ML VIAL ONE (09:29)
[2022-12-02] MEDS: HYDROcodone/Acetaminophen 5/325 mg Tablet PO PRN ×2 (14:32→18:18)
[2022-12-02] MEDS: Heparin 5,000 UNITS/ML VIAL SC SCH ×2 (14:38→20:31)
[2022-12-03] MEDS: HYDROcodone/Acetaminophen 5/325 mg Tablet PO PRN ×2 (00:45→08:57)
[2022-12-03] MEDS: cefTRIAXone\\ROCEPHIN 1 GM in Sodium Chloride 0.9% 100 ML IVPB SCH (00:46)
[2022-12-03 06:38] LABS: #Eosinphils 0.2 thou/uL (0.0-0.7); #Monocytes 0.7 thou/uL (0.11-0.59); #Neutrophils 5.1 thou/uL (1.40-6.50); %Basophils 0.5 % (0.0-1.0); %Eosinophils 2.3 % (0.0-10.0); %Lymphocytes 17.9 % (21.0-51.0); %Monocytes 9.9 % (0.0-10.0); %Neutrophils 68.6 % (42.0-75.0); Hemoglobin 10.5 g/dL (14.0-18.0); Mean Corpuscular HGB CONC 32.3 g/dL (32.0-36.0); Mean Corpuscular Hemoglobin 36.8 pg (27.0-31.0); Mean Platelet Volume 9.6 fL (7.4-10.4); Platelet Count 127 10x3/uL (130-400); RBC Distribution Width 17.5 % (11.5-14.5); Red Blood Cell (RBC) Count 2.85 mill/uL (4.70-6.10); White Blood Cell (WBC) Count 7.5 10x3/uL (4.8-10.8)
[2022-12-03 07:32] LABS: Anion Gap 15 mmol/L (10-20); BUN (Urea Nitrogen) 36 mg/dL (8.4-25.7); Calc. Creatinine Clearance 28 mL/min (70-130); Calcium 8.3 mg/dL (7.8-10.44); Carbon Dioxide 21 mmol/L (23-31); Chloride 101 mmol/L (98-107); Estimated GFR 35; Glucose 77 mg/dL (83-110); Sodium 133 mmol/L (136-145)
[2022-12-03] MEDS ORDERED: Heparin 10,000 UNITS/ 10 ML VIAL ONE (08:29)
[2022-12-03] MEDS: Saccharomyces boulardii 250 MG CAP PO SCH (08:58)
[2022-12-03] MEDS: Heparin 5,000 UNITS/ML VIAL SC SCH (08:58)
[2022-12-03 09:24] VITALS: TEMP 97.5
[2022-12-03] MEDS: Acetaminophen 325 MG TAB PO PRN (11:20)
[2022-12-03 16:34] VITALS: BP 100/51
[2022-12-04] MEDS ORDERED: Levothyroxine Sodium 100 MCG TAB PO SCH (06:00)
== END 2022-12-03 18:05 | DRG 689 ==
LOC: ERS 18:47 → 2NO 21:37 → OBSVTOIN 11-27 16:04
PROVIDERS: ADMIT Student in an Organized Health Care Education/Training Program; ATTEND Internal Medicine
PROC: 5A1D70Z Performance of Urinary Filtration, Intermittent, Less than 6 Hours Per Day (ICD-10-PCS; principal; 2022-11-28)
PROC: 5A1D70Z Performance of Urinary Filtration, Intermittent, Less than 6 Hours Per Day (ICD-10-PCS; 2022-12-02)
PROC: 5A1D70Z Performance of Urinary Filtration, Intermittent, Less than 6 Hours Per Day (ICD-10-PCS; 2022-12-03)
DX: N39.0 Urinary tract infection, site not specified (principal); E43 Unspecified severe protein-calorie malnutrition; N18.6 End stage renal disease; I13.2 Hypertensive heart and chronic kidney disease with heart failure and with stage 5 chronic kidney disease, or end stage renal disease; I50.32 Chronic diastolic (congestive) heart failure; E78.5 Hyperlipidemia, unspecified; Z66 Do not resuscitate; I25.10 Atherosclerotic heart disease of native coronary artery without angina pectoris; E03.9 Hypothyroidism, unspecified; N40.0 Benign prostatic hyperplasia without lower urinary tract symptoms; C67.9 Malignant neoplasm of bladder, unspecified; R79.89 Other specified abnormal findings of blood chemistry; D63.1 Anemia in chronic kidney disease; G89.29 Other chronic pain; R26.81 Unsteadiness on feet; L98.8 Other specified disorders of the skin and subcutaneous tissue; R53.81 Other malaise; E87.6 Hypokalemia; Z68.21 Body mass index [BMI] 21.0-21.9, adult; Z95.1 Presence of aortocoronary bypass graft; Z88.0 Allergy status to penicillin; Z79.890 Hormone replacement therapy; Z79.899 Other long term (current) drug therapy; Z90.49 Acquired absence of other specified parts of digestive tract; Z98.890 Other specified postprocedural states; Z87.891 Personal history of nicotine dependence; Z99.2 Dependence on renal dialysis; R29.6 Repeated falls
CPT/HCPCS: 36415; 36416; 71045; 72131; 72192; 76705; 80048; 80053; 80074; 81001; 82550; 82607; 83735; 84100; 85025; 87086; 90935; 93005; 96372; 96374; 96375; G0257; G0378; J0696; J1644; J2272; J3411; J3490; Q0162